=== PATIENT | male | born 1945 | race Caucasian/White ===

== ENCOUNTER 2018-01-02 13:51 | Inpatient (IN) | payer MEDICARE ==
[2018-01-02] MEDS ORDERED: ASPIRIN 81 MG TABLET, CHEWABLE PO ONE (13:54)
--- NOTE | 2018-01-02 13:59 | ER Document Report ---
ED General - General Stated Complaint: CHEST PAIN Time Seen by Provider: 01/02/18 13:58 Notes: Patient is a 72-year-old male with history of diabetes that presents to the emergency department for chief complaint of weakness, polyuria and polydipsia. Patient reports he was having the symptoms over the last day and a half, he states his diabetes was well controlled he was on metformin, but states prior to that he was on insulin, but was taken off of it some time ago. He states he had really dry mouth, and frequent urination he was getting up constantly in the middle the night. He also has felt overall weak, and lightheaded, he had a brief episode of chest pressure earlier today as well. Denies any current chest pain or shortness of breath. Past Medical History: Diabetes mellitus, CAD, hypertension, hyperlipidemia, chronic kidney disease Past Surgical History: Left kidney resection, CAD with stenting x6 Social History: Denies current tobacco, alcohol or drug use Family History: Reviewed and noncontributory for presenting illness Allergies: Reviewed, see documented allergy list. REVIEW OF SYSTEMS: Unless otherwise stated in this report the patient's positive and negative responses for review of systems for constitutional, eyes, ENT, cardiovascular, respiratory, gastrointestinal, neurological, genitourinary, musculoskeletal, and integumentary systems and related systems to the presenting problem are either as stated in the HPI or were not pertinent or were negative for the symptoms and/or complaints related to the presenting medical problem. PHYSICAL EXAMINATION: Vital signs reviewed, nursing noted reviewed. GENERAL: Elderly male, no acute distress HEAD: Atraumatic, normocephalic. EYES: Eyes appear normal, extraocular movements intact, sclera anicteric, conjunctiva are normal. ENT: nares patent, oropharynx clear without exudates. Dry mucous membranes in the mouth NECK: Normal range of motion, supple without lymphadenopathy LUNGS: Breath sounds clear to auscultation bilaterally and equal. No wheezes rales or rhonchi. HEART: Regular rate and rhythm without murmurs ABDOMEN: Soft, obese, nontender, normoactive bowel sounds. No rebound, guarding , or rigidity. No masses appreciated. EXTREMITIES: Nontender, good range of motion, no pitting or edema. NEUROLOGICAL: No focal neurological deficits. Moves all extremities spontaneously Motor and sensory grossly intact on exam. PSYCH: Normal mood, normal affect. SKIN: Warm, Dry, normal turgor, no rashes or lesions noted on exposed skin - Related Data Allergies/Adverse Reactions: No Known Allergies Allergy (Unverified 01/02/18 15:01) Past Medical History - Social History Smoking Status: Never Smoker Family History: Reviewed & Not Pertinent Physical Exam - Vital signs Vitals: Resp 21 H 01/02/18 13:56 Course - Re-evaluation Re-evalutation: Patient seen and examined vital signs reviewed. Laboratory data and imaging were ordered as appropriate for the patient's presenting symptoms and complaint, with consideration of any critical or life threatening conditions that may be associated with their obtained history and exam as noted above. Patient was treated with IV fluids, given 2 L total, and then given 10 units of insulin IV Results were reviewed when available and demonstrated severe hyperglycemia, glucose on serum was 611, initial Accu-Chek was reading high, we repeated this after 2 L of IV fluid, he was still in the 500s, he is not acidotic on VBG, his anion gap was 17, he had pseudohyponatremia, troponin negative, chest x-ray negative The patient was re-evaluated and was improved, overall he was feeling better, he was still markedly hyperglycemic, and I feel that the patient needs inpatient management, to improve his overall blood glucose, and to set him up with insulin regimen Evaluation was most consistent with severe diabetic hyperglycemia, pseudohyponatremia Results were discussed with the patient at this point after careful consideration I feel that that patient should be admitted to the hospital. This was discussed with the patient that it is in the best interest for their care to be admitted for further evaluation and management. Patient agreed with this plan of care. A call was placed to the admitted physician, Dr. Osorio who graciously accepted the patient onto their service. *Note is created using voice recognition software and may contain spelling, syntax or grammatical errors. Laboratory 01/02/18 01/02/18 01/02/18 14:10 14:10 14:10 WBC 7.5 RBC 4.07 L Hgb 10.8 L Hct 32.6 L MCV 80 MCH 26.5 L MCHC 33.1 RDW 15.3 H Plt Count 261 Seg Neutrophils % 70.7 Lymphocytes % 15.9 Monocytes % 9.3 Eosinophils % 2.9 Basophils % 1.2 Absolute Neutrophils 5.3 Absolute Lymphocytes 1.2 Absolute Monocytes 0.7 Absolute Eosinophils 0.2 Absolute Basophils 0.1 VBG pH VBG pCO2 VBG HCO3 VBG Base Excess Sodium 132.2 L Potassium 4.9 Chloride 93 L Carbon Dioxide 22 Anion Gap 17 BUN 35 H Creatinine 1.79 H Est GFR ( Amer) 46 L Est GFR (Non-Af Amer) 38 L Glucose 611 H* POC Glucose Calcium 8.7 Total Bilirubin 0.4 Direct Bilirubin 0.2 Neonat Total Bilirubin Not Reportable Neonat Direct Bilirubin Not Reportable Neonat Indirect Bili Not Reportable AST 16 L ALT 23 Alkaline Phosphatase 160 H Creatine Kinase 61 CK-MB (CK-2) 0.82 Troponin I < 0.012 Total Protein 6.5 Albumin 4.0 01/02/18 01/02/18 14:10 16:14 WBC RBC Hgb Hct MCV MCH MCHC RDW Plt Count Seg Neutrophils % Lymphocytes % Monocytes % Eosinophils % Basophils % Absolute Neutrophils Absolute Lymphocytes Absolute Monocytes Absolute Eosinophils Absolute Basophils VBG pH 7.36 VBG pCO2 46.3 VBG HCO3 25.3 VBG Base Excess -0.5 Sodium Potassium Chloride Carbon Dioxide Anion Gap BUN Creatinine Est GFR ( Amer) Est GFR (Non-Af Amer) Glucose POC Glucose 530 H* Calcium Total Bilirubin Direct Bilirubin Neonat Total Bilirubin Neonat Direct Bilirubin Neonat Indirect Bili AST ALT Alkaline Phosphatase Creatine Kinase CK-MB (CK-2) Troponin I Total Protein Albumin Chest X-Ray 01/02/18 13:54 IMPRESSION: NO ACUTE RADIOGRAPHIC FINDING IN THE CHEST. - Vital Signs Vital signs: Temp Pulse Resp BP Pulse Ox 15 119/60 97 01/02/18 14:01 01/02/18 14:01 01/02/18 14:19 - Laboratory Result Diagrams: 01/02/18 14:10 01/02/18 14:10 Laboratory results interpreted by me: 01/02/18 01/02/18 01/02/18 14:10 14:10 16:14 RBC 4.07 L Hgb 10.8 L Hct 32.6 L MCH 26.5 L RDW 15.3 H Sodium 132.2 L Chloride 93 L BUN 35 H Creatinine 1.79 H Est GFR ( Amer) 46 L Est GFR (Non-Af Amer) 38 L Glucose 611 H* POC Glucose 530 H* AST 16 L Alkaline Phosphatase 160 H - EKG Interpretation by Me Additional EKG results interpreted by me: EKG demonstrates sinus rhythm with a ventricular rate of 87 bpm, left axis deviation, normal intervals, there is a T wave inversion in lead III, nonspecific, no EKG for comparison. Discharge - Discharge Clinical Impression: Hyperglycemia, Dehydration, Renal insufficiency, Hyponatremia Condition: Stable Disposition: ADMITTED INPATIENT Admitting Provider: Hospitalist - Dr. Osorio Unit Admitted: Telemetry
[2018-01-02 14:33] LABS: ABSOLUTE BASOPHILS # (AUTO) 0.1 10^3/uL (0.0-0.2); ABSOLUTE EOSINOPHILS # (AUTO) 0.2 10^3/uL (0.0-0.6); ABSOLUTE LYMPHOCYTES (AUTO) 1.2 10^3/uL (0.5-4.7); ABSOLUTE MONOCYTES (AUTO) 0.7 10^3/uL (0.1-1.4); ABSOLUTE NEUT (AUTO) 5.3 10^3/uL (1.7-8.2); BASOPHILS % (AUTO) 1.2 % (0-2); EOSINOPHILS % (AUTO) 2.9 % (0-6); HEMATOCRIT 32.6 % (37.9-51.0); HEMOGLOBIN 10.8 g/dL (13.5-17.0); LYMPHOCYTES % (AUTO) 15.9 % (13-45); MEAN CORPUSCULAR HEMOGLOBIN 26.5 pg (27.0-33.4); MEAN CORPUSCULAR HGB CONC 33.1 g/dL (32.0-36.0); MEAN CORPUSCULAR VOLUME 80 fl (80-97); MONOCYTES % (AUTO) 9.3 % (3-13); PLATELET COUNT 261 10^3/uL (150-450); RED BLOOD COUNT 4.07 10^6/uL (4.35-5.55); RED CELL DISTRIBUTION WIDTH 15.3 % (11.5-14.0); SEGMENTED NEUTROPHILS % (AUTO) 70.7 % (42-78); TOTAL CELLS COUNTED % (AUTO) 100 %; WHITE BLOOD COUNT 7.5 10^3/uL (4.0-10.5)
[2018-01-02] MEDS ORDERED: NORMAL SALINE 1000 ML 1,000 ML IV ONE (14:34)
[2018-01-02 14:35] LABS: VENOUS BLOOD BASE EXCESS -0.5 mmol/L; VENOUS BLOOD HCO3 25.3 mmol/L (20-32); VENOUS BLOOD PCO2 46.3 mmHg (35-63); VENOUS BLOOD PH 7.36 (7.30-7.42)
[2018-01-02 14:53] LABS: ALANINE AMINOTRANSFERASE 23 U/L (21-72); ALKALINE PHOSPHATASE 160 U/L (38-126); ANION GAP 17 (5-19); ASPARTATE AMINO TRANSFERASE 16 U/L (17-59); BILIRUBIN,DIRECT 0.2 mg/dL (0.0-0.4); BILIRUBIN,TOTAL 0.4 mg/dL (0.2-1.3); BLOOD UREA NITROGEN 35 mg/dL (7-20); CALCIUM 8.7 mg/dL (8.4-10.2); CARBON DIOXIDE 22 mmol/L (22-30); CHLORIDE 93 mmol/L (98-107); CREATINE KINASE 61 U/L (55-170); POTASSIUM 4.9 mmol/L (3.6-5.0); SODIUM 132.2 mmol/L (137-145); TOTAL PROTEIN 6.5 g/dL (6.3-8.2)
[2018-01-02 15:04] LABS: CREATINE KINASE MB 0.82 ng/mL (<4.55)
[2018-01-02 15:06] LABS: GLUCOSE 611 mg/dL (75-110)
[2018-01-02 15:08] LABS: TROPONIN I < 0.012 ng/mL
--- NOTE | 2018-01-02 15:45 | RADIOLOGY REPORT (SQ) ---
EXAM DESCRIPTION: CHEST SINGLE VIEW COMPLETED DATE/TIME: 01/02/2018 3:12 pm REASON FOR STUDY: cp COMPARISON: None. EXAM PARAMETERS: NUMBER OF VIEWS: One view. TECHNIQUE: Single frontal radiographic view of the chest acquired. RADIATION DOSE: NA LIMITATIONS: None. FINDINGS: LUNGS AND PLEURA: No opacities, masses or pneumothorax. No pleural effusion. MEDIASTINUM AND HILAR STRUCTURES: No masses. Contour normal. HEART AND VASCULAR STRUCTURES: Heart normal in size. Normal vasculature. BONES: No acute findings. HARDWARE: None in the chest. OTHER: Hiatal hernia. IMPRESSION: NO ACUTE RADIOGRAPHIC FINDING IN THE CHEST. TECHNICAL DOCUMENTATION: JOB ID: [id number] [email or web address] Rights Reserved Reading location - IP/workstation name: [email or web address]
[2018-01-02] MEDS ORDERED: INSULIN REG, HUMAN 100 UNIT/ML 3 ML VIAL (PYX) IV ONE (16:29)
[2018-01-02] MEDS ORDERED: ONDANSETRON 4 MG TAB.RAPDIS PO PRN (18:33)
[2018-01-02] MEDS ORDERED: DEXTROSE 50%-WATER 25 GM/50 ML DISP.SYRIN IV PRN ×2 (18:42)
[2018-01-02] MEDS ORDERED: GLUCAGON,HUMAN RECOMB 1 MG INJ IM PRN (18:42)
[2018-01-02] MEDS ORDERED: DEXTROSE 40% GEL 15 GM TUBE PO PRN ×2 (18:42)
[2018-01-02] MEDS ORDERED: NORMAL SALINE 1000 ML 1,000 ML IV PRN (18:42)
--- NOTE | 2018-01-02 19:21 | PDOC H&P ---
History of Present Illness Admission Date/PCP: 01/02/18 17:17 GARY ANGELA MD Patient complains of: Diabetes with markedly increased glucose. Significant urinary frequency and increased thirst. Generalized weakness and fatigue History of Present Illness: BONI MANCUSO is a 72 year old male This pleasant 72-year-old gentleman reports 5-6 days of marked increase in urinary frequency and increased thirst. He has been feeling weak in general for 7-10 days. He reports being tired all the time. He denies any fever. He does have a chronic cough from his hiatal hernia with acid reflux. His diabetes was previously well controlled with only 500 mg of metformin daily. He worked his way down from 1000 mg twice daily. Past Medical History Cardiac Medical History: Reports: Coronary Artery Disease, Hyperlipidema, Hypertension Pulmonary Medical History: Reports: None EENT Medical History: Reports: None Neurological Medical History: Reports: Hemorrhagic CVA, Other - Diabetic neuropathy Endocrine Medical History: Reports: Diabetes Mellitus Type 2 Renal/ Medical History: Reports: Chronic Kidney Disease, Other - Prostatitis Malignancy Medical History: Reports: Renal (Kidney) Cancer GI Medical History: Reports: Hiatal Hernia Musculoskeltal Medical History: Reports: None Skin Medical History: Reports: None Psychiatric Medical History: Reports: Depression Past Surgical History Past Surgical History: Reports: Cardiac Catheterization - stents x 6, Coronary Stent - X6, Other - Nephrectomy, TURP, vasectomy Social History Information Source: Patient Lives with: Alone, Other - Smoking Status: Never Smoker Frequency of Alcohol Use: Rare Last Alcohol Use: 10/02/17 - No beer for 3-4 months Drugs: None Hx Prescription Drug Abuse: No 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 Family History Family History: CAD, DM Parental Family History Reviewed: Yes Children Family History Reviewed: Yes - 2 children with no chronic illnesses Sibling(s) Family History Reviewed.: Yes - Brother is from trauma/GSW Medication/Allergy Home Medications: Amlodipine Besylate [Norvasc 10 mg Tablet] 10 mg PO DAILY 01/02/18 Aspirin [Aspirin EC] 81 mg PO DAILY 01/02/18 Atorvastatin Calcium [Lipitor 20 mg Tablet] 20 mg PO QHS 01/02/18 Bupropion HCl [Bupropion HCl Sr] 150 mg PO DAILY 01/02/18 Clopidogrel Bisulfate [Clopidogrel] 75 mg PO DAILY 01/02/18 Esomeprazole Magnesium [Nexium] 40 mg PO DAILY 01/02/18 Gabapentin 300 mg PO Q8 01/02/18 Hydrochlorothiazide [Hydrodiuril 25 mg Tablet] 25 mg PO DAILY 01/02/18 Isosorbide Mononitrate [Isosorbide Mononitrate ER] 30 mg PO DAILY 01/02/18 Lisinopril [Zestril] 20 mg PO Q12 01/02/18 Metformin HCl [Glucophage 500 mg Tablet] 500 mg PO DAILY 01/02/18 Ranitidine HCl [Zantac] 150 mg PO Q12 01/02/18 Allergies/Adverse Reactions: No Known Allergies Allergy (Unverified 01/02/18 15:01) Review of Systems Constitutional: PRESENT: fatigue, weakness Eyes: PRESENT: visual disturbances - Blurry vision over the last week Ears: ABSENT: hearing changes Nose, Mouth, and Throat: PRESENT: other - Dry mouth Cardiovascular: ABSENT: chest pain, dyspnea on exertion, palpitations Respiratory: PRESENT: cough - Related to hiatal hernia with reflux Gastrointestinal: PRESENT: diarrhea - For the last several days, other - Acid reflux Genitourinary: PRESENT: other - Very frequent urination. ABSENT: dysuria, hematuria Musculoskeletal: PRESENT: as per HPI Integumentary: ABSENT: diaphoresis, pruritus, rash Neurological: PRESENT: other - Pins and needles both feet Psychiatric: PRESENT: depression - Stable on Zoloft Endocrine: PRESENT: polydipsia, polyuria Hematologic/Lymphatic: ABSENT: easy bleeding, easy bruising Allergic/Immunologic: ABSENT: seasonal rhinorrhea Physical Exam Vital Signs: Temp Pulse Resp BP Pulse Ox 16 123/71 98 01/02/18 17:01 01/02/18 17:01 01/02/18 17:01 General appearance: PRESENT: no acute distress, cooperative, morbidly obese, well-developed, well-nourished Head exam: PRESENT: atraumatic, normocephalic Eye exam: PRESENT: conjunctiva pink, EOMI. ABSENT: scleral icterus Ear exam: PRESENT: normal external ear exam Mouth exam: PRESENT: dry mucosa Throat exam: ABSENT: tonsillar erythema, tonsillar exudate Neck exam: PRESENT: full ROM. ABSENT: carotid bruit, JVD, lymphadenopathy Respiratory exam: PRESENT: clear to auscultation kobe, symmetrical. ABSENT: rales, rhonchi, wheezes Cardiovascular exam: PRESENT: RRR, +S1, +S2, systolic murmur - 1/6 systolic murmur. Pulses: PRESENT: normal radial pulses, normal dorsalis pedis pul Vascular exam: PRESENT: normal capillary refill GI/Abdominal exam: PRESENT: normal bowel sounds, soft. ABSENT: distended, firm , tenderness Rectal exam: PRESENT: deferred Extremities exam: ABSENT: calf tenderness, pedal edema Musculoskeletal exam: PRESENT: normal inspection Neurological exam: PRESENT: alert, awake, oriented to person, oriented to place , oriented to situation Psychiatric exam: PRESENT: appropriate affect, normal mood Skin exam: PRESENT: dry, intact, warm. ABSENT: cyanosis, rash Results Impressions: Chest X-Ray 01/02/18 13:54 IMPRESSION: NO ACUTE RADIOGRAPHIC FINDING IN THE CHEST. Assessment & Plan - Diagnosis (1) Diabetes mellitus with hyperglycemia Qualifiers: Diabetes mellitus type: type 2 Diabetes mellitus terminal operations manager insulin use: without terminal operations manager use Qualified Code(s): E11.65 - Type 2 diabetes mellitus with hyperglycemia Is this a current diagnosis for this admission?: Yes Plan: The patient has a history of diabetes mellitus. He previously was on insulin and metformin. He states that with diet and exercise he was able to work his way down to no insulin and 500 mg of metformin daily from 1 g of metformin twice daily. He cannot recall an incident that may have triggered his high sugar. Based on his symptoms he has likely had underlying hyperglycemia for at least 5-6 days and likely longer. I will check a hemoglobin A1c. I am holding his metformin and instituting Lantus 8 units daily with a Humalog sliding scale. I will likely resume his metformin based on his renal function. (2) Chronic kidney disease (CKD) stage G3b/A3, moderately decreased glomerular filtration rate (GFR) between 30-44 mL/min/1.73 square meter and albuminuria creatinine ratio greater than 300 mg/g Is this a current diagnosis for this admission?: Yes Plan: The patient was somewhat dehydrated with hypotension responding to IV fluids. This is likely from the marked polyuria. He is status post a nephrectomy for renal cell carcinoma. His current GFR is only 38. We will continue to monitor his renal function. (3) Dehydration Is this a current diagnosis for this admission?: Yes Plan: Likely result of his polyuria. We will continue IV fluids and recheck his chemistries in the morning. (4) Coronary artery disease Is this a current diagnosis for this admission?: Yes Plan: The patient has a history of 6 cardiac stents. He also has a history of hemorrhagic stroke. We will continue atorvastatin, aspirin, Plavix and his FABIAN inhibitor. He is on a calcium channel harris but he has not been on beta blockade. - Time Time Spent: 50 to 70 Minutes Medications reviewed and adjusted accordingly: Yes Anticipated discharge: Home - Inpatient Certification Based on my medical assessment, after consideration of the patient's comorbidities, presenting symptoms, or acuity I expect that the services needed warrant INPATIENT care.: Yes I certify that my determination is in accordance with my understanding of Medicare's requirements for reasonable and necessary INPATIENT services [42 CFR 412.3e].: Yes Medical Necessity: Need Close Monitoring Due to Risk of Patient Decompensation, Need For IV Fluids, Risk of Complication if Not Cared For in Hospital
--- NOTE | 2018-01-02 20:45 | EKG REPORT ---
SEVERITY:- ABNORMAL ECG - SINUS RHYTHM PROBABLE INFERIOR INFARCT, AGE INDETERMINATE : Confirmed by: Dionna Paulino MD 02-Jan-2018 20:44:54
[2018-01-02] MEDS ORDERED: (PENDING PHARMACY ID) (Ranitidine Hcl [Zantac 150 Mg Tablet] 150 MG) PO SCH (22:00)
[2018-01-02] MEDS ORDERED: (PENDING PHARMACY ID) (Lisinopril [Zestril] 20 MG) PO SCH (22:00)
[2018-01-02] MEDS ORDERED: LISINOPRIL 10 MG TABLET PO SCH (22:00)
[2018-01-02] MEDS ORDERED: INSULIN GLARGINE,HUM.REC.ANLOG 300 UNIT/3 ML INSULN.PEN SUBCUT SCH (22:00)
[2018-01-02] MEDS ORDERED: SERTRALINE HCL 50 MG TABLET PO SCH (22:00)
[2018-01-02] MEDS: INSULIN LISPRO 100 UNIT/ML 3 ML VIAL SUBCUT PRN (22:50)
[2018-01-02] MEDS: BUPROPION HCL 75 MG TABLET PO SCH (22:50)
[2018-01-02] MEDS: FAMOTIDINE 20 MG TABLET PO SCH (22:50)
[2018-01-02] MEDS: ATORVASTATIN CALCIUM 80 MG TABLET PO SCH (22:50)
[2018-01-02] MEDS: GABAPENTIN 300 MG CAPSULE PO SCH (22:50)
[2018-01-03 04:56] LABS: ABSOLUTE BASOPHILS # (AUTO) 0.1 10^3/uL (0.0-0.2); ABSOLUTE EOSINOPHILS # (AUTO) 0.3 10^3/uL (0.0-0.6); ABSOLUTE LYMPHOCYTES (AUTO) 1.5 10^3/uL (0.5-4.7); ABSOLUTE MONOCYTES (AUTO) 0.6 10^3/uL (0.1-1.4); ABSOLUTE NEUT (AUTO) 4.6 10^3/uL (1.7-8.2); BASOPHILS % (AUTO) 1.4 % (0-2); EOSINOPHILS % (AUTO) 3.9 % (0-6); HEMOGLOBIN 10.2 g/dL (13.5-17.0); LYMPHOCYTES % (AUTO) 21.5 % (13-45); MEAN CORPUSCULAR HEMOGLOBIN 27.8 pg (27.0-33.4); MEAN CORPUSCULAR HGB CONC 35.1 g/dL (32.0-36.0); MEAN CORPUSCULAR VOLUME 79 fl (80-97); MONOCYTES % (AUTO) 8.9 % (3-13); PLATELET COUNT 211 10^3/uL (150-450); RED BLOOD COUNT 3.66 10^6/uL (4.35-5.55); RED CELL DISTRIBUTION WIDTH 15.6 % (11.5-14.0); SEGMENTED NEUTROPHILS % (AUTO) 64.3 % (42-78); TOTAL CELLS COUNTED % (AUTO) 100 %; WHITE BLOOD COUNT 7.1 10^3/uL (4.0-10.5)
[2018-01-03] MEDS ORDERED: LANSOPRAZOLE 30 MG TAB.RAP.DR PO SCH (06:00)
[2018-01-03] MEDS: GABAPENTIN 300 MG CAPSULE PO SCH ×3 (06:20→21:56)
[2018-01-03] MEDS: LANSOPRAZOLE 30 MG TAB.RAP.DR PO SCH (06:20)
[2018-01-03] MEDS: INSULIN LISPRO 100 UNIT/ML 3 ML VIAL SUBCUT PRN ×3 (06:37→21:56)
[2018-01-03] MEDS: ISOSORBIDE MONONITRATE 30 MG TAB.ER.24H PO SCH (09:19)
[2018-01-03] MEDS: LISINOPRIL 10 MG TABLET PO SCH (09:19)
[2018-01-03] MEDS: ASPIRIN 81 MG TABLET, CHEWABLE PO SCH (09:20)
[2018-01-03] MEDS: HYDROCHLOROTHIAZIDE 25 MG TABLET PO SCH (09:20)
[2018-01-03] MEDS: FAMOTIDINE 20 MG TABLET PO SCH ×2 (09:20→21:56)
[2018-01-03] MEDS: CLOPIDOGREL BISULFATE 75 MG TABLET PO SCH (09:20)
[2018-01-03] MEDS: AMLODIPINE BESYLATE 5 MG TABLET PO SCH (09:20)
[2018-01-03] MEDS: ENOXAPARIN SODIUM INJ 40 MG/0.4 ML DISP.SYRIN SUBCUT SCH (09:21)
[2018-01-03] MEDS: BUPROPION HCL 75 MG TABLET PO SCH ×2 (11:06→22:03)
[2018-01-03] MEDS ORDERED: INSULIN LISPRO 100 UNIT/ML 3 ML VIAL SUBCUT ONE ×2 (16:30→18:30)
--- NOTE | 2018-01-03 17:30 | PDOC PROGRESS REPORT ---
Subjective Progress Note for:: 01/03/18 Subjective:: The patient reports feeling better however his Accu-Cheks remain elevated. Reason For Visit: DIABETES MELLITIUS TYPE 2 WITH HYPERGLYCEMIA Physical Exam Vital Signs: Temp Pulse Resp BP Pulse Ox 98.4 F 73 18 130/57 H 91 L 01/03/18 07:24 01/03/18 14:00 01/03/18 07:24 01/03/18 07:24 01/03/18 07:24 Intake & Output 01/02/18 01/03/18 01/04/18 06:59 06:59 06:59 Intake Total 700 Balance 700 Weight 108.8 kg General appearance: PRESENT: no acute distress, cooperative, obese Head exam: PRESENT: atraumatic, normocephalic Eye exam: PRESENT: conjunctiva pink, EOMI. ABSENT: scleral icterus Ear exam: PRESENT: normal external ear exam Mouth exam: PRESENT: moist Neck exam: ABSENT: carotid bruit, JVD, lymphadenopathy Respiratory exam: PRESENT: rales - Faint rales at bilateral bases., symmetrical , unlabored. ABSENT: rhonchi, wheezes Cardiovascular exam: PRESENT: RRR, +S1, +S2, systolic murmur Pulses: PRESENT: normal radial pulses, normal dorsalis pedis pul GI/Abdominal exam: PRESENT: normal bowel sounds, soft. ABSENT: distended, guarding, tenderness Extremities exam: ABSENT: calf tenderness, pedal edema Musculoskeletal exam: PRESENT: ambulatory Neurological exam: PRESENT: alert, awake, oriented to person, oriented to place , oriented to situation Psychiatric exam: PRESENT: appropriate affect, normal mood Focused psych exam: ABSENT: delusional, pressured speech, restlessness Skin exam: PRESENT: dry, intact, warm. ABSENT: cyanosis, rash Results Laboratory Results: 01/03/18 04:14 01/03/18 04:14 WBC 7.1 RBC 3.66 L Hgb 10.2 L Hct 29.0 L MCV 79 L MCH 27.8 MCHC 35.1 RDW 15.6 H Plt Count 211 Seg Neutrophils % 64.3 Lymphocytes % 21.5 Monocytes % 8.9 Eosinophils % 3.9 Basophils % 1.4 Absolute Neutrophils 4.6 Absolute Lymphocytes 1.5 Absolute Monocytes 0.6 Absolute Eosinophils 0.3 Absolute Basophils 0.1 01/02/18 20:45 Troponin I < 0.012 Impressions: Chest X-Ray 01/02/18 13:54 IMPRESSION: NO ACUTE RADIOGRAPHIC FINDING IN THE CHEST. Assessment & Plan - Diagnosis (1) Diabetes mellitus with hyperglycemia Qualifiers: Diabetes mellitus type: type 2 Diabetes mellitus fence setter insulin use: without fence setter use Qualified Code(s): E11.65 - Type 2 diabetes mellitus with hyperglycemia Is this a current diagnosis for this admission?: Yes Plan: The patient has a history of diabetes mellitus. He previously was on insulin and metformin. He states that with diet and exercise he was able to work his way down to no insulin and 500 mg of metformin daily from 1 g of metformin twice daily. He cannot recall an incident that may have triggered his high sugar. Based on his symptoms he has likely had underlying hyperglycemia for at least 5-6 days and likely longer. I will check a hemoglobin A1c. I am holding his metformin and instituting Lantus 8 units daily with a Humalog sliding scale. I will likely resume his metformin based on his renal function. January 03, 2018-despite resuming Lantus the patient still has high Accu-Cheks. I did give him extra Humalog insulin this evening. I have increased his Lantus to twice daily dosing. He has hemoglobin A1c was greater than 14 and so clearly there has been some compliance issues. We will follow his Accu-Cheks and see how he does on the higher dose of Lantus. (2) Chronic kidney disease (CKD) stage G3b/A3, moderately decreased glomerular filtration rate (GFR) between 30-44 mL/min/1.73 square meter and albuminuria creatinine ratio greater than 300 mg/g Is this a current diagnosis for this admission?: Yes Plan: The patient was somewhat dehydrated with hypotension responding to IV fluids. This is likely from the marked polyuria. He is status post a nephrectomy for renal cell carcinoma. His current GFR is only 38. We will continue to monitor his renal function. January 03, 2018-again he seems to be at baseline. I will recheck chemistries tomorrow. Continue current medication regimen. (3) Dehydration Is this a current diagnosis for this admission?: Yes Plan: Likely result of his polyuria. We will continue IV fluids and recheck his chemistries in the morning. January 03, 2018-I discontinued the patient's continuous saline infusion. He is having no difficulty with his oral intake so we will encourage increased p.o. liquids. His dehydration seems to have resolved. His polyuria will improve with better glucose control. (4) Coronary artery disease Is this a current diagnosis for this admission?: Yes Plan: The patient has a history of 6 cardiac stents. He also has a history of hemorrhagic stroke. We will continue atorvastatin, aspirin, Plavix and his FABIAN inhibitor. He is on a calcium channel harris but he has not been on beta blockade. The second 2018-the patient has a significant history of coronary artery disease with 6 stents. His regimen does not include a beta-harris. I will see if there is any contraindication and if not likely start him on low-dose metoprolol. - Time Time Spent with patient: 25-34 minutes Medications reviewed and adjusted accordingly: Yes Anticipated discharge: Home
[2018-01-03] MEDS: INSULIN GLARGINE,HUM.REC.ANLOG 300 UNIT/3 ML INSULN.PEN SUBCUT SCH (18:31)
[2018-01-03] MEDS: ATORVASTATIN CALCIUM 80 MG TABLET PO SCH (21:56)
[2018-01-03] MEDS ORDERED: INSULIN GLARGINE,HUM.REC.ANLOG 300 UNIT/3 ML INSULN.PEN SUBCUT SCH (22:00)
[2018-01-04 05:46] LABS: ANION GAP 11 (5-19); BLOOD UREA NITROGEN 27 mg/dL (7-20); CALCIUM 8.6 mg/dL (8.4-10.2); CARBON DIOXIDE 26 mmol/L (22-30); CHLORIDE 100 mmol/L (98-107); GLUCOSE 250 mg/dL (75-110); POTASSIUM 4.2 mmol/L (3.6-5.0); SODIUM 136.5 mmol/L (137-145)
[2018-01-04] MEDS: GABAPENTIN 300 MG CAPSULE PO SCH ×3 (06:08→21:30)
[2018-01-04] MEDS: LANSOPRAZOLE 30 MG TAB.RAP.DR PO SCH (06:09)
[2018-01-04] MEDS: INSULIN LISPRO 100 UNIT/ML 3 ML VIAL SUBCUT PRN ×3 (07:44→15:50)
[2018-01-04] MEDS: ISOSORBIDE MONONITRATE 30 MG TAB.ER.24H PO SCH (09:41)
[2018-01-04] MEDS: ASPIRIN 81 MG TABLET, CHEWABLE PO SCH (09:41)
[2018-01-04] MEDS: HYDROCHLOROTHIAZIDE 25 MG TABLET PO SCH (09:41)
[2018-01-04] MEDS: FAMOTIDINE 20 MG TABLET PO SCH ×2 (09:42→21:30)
[2018-01-04] MEDS: INSULIN GLARGINE,HUM.REC.ANLOG 300 UNIT/3 ML INSULN.PEN SUBCUT SCH (09:42)
[2018-01-04] MEDS: ENOXAPARIN SODIUM INJ 40 MG/0.4 ML DISP.SYRIN SUBCUT SCH (09:42)
[2018-01-04] MEDS: BUPROPION HCL 75 MG TABLET PO SCH ×2 (09:42→21:30)
[2018-01-04] MEDS: AMLODIPINE BESYLATE 5 MG TABLET PO SCH (09:42)
[2018-01-04] MEDS: LISINOPRIL 10 MG TABLET PO SCH (09:42)
[2018-01-04] MEDS: CLOPIDOGREL BISULFATE 75 MG TABLET PO SCH (09:42)
[2018-01-04] MEDS: ACETAMINOPHEN 325 MG TABLET PO PRN ×2 (12:01→17:47)
--- NOTE | 2018-01-04 12:58 | PDOC PROGRESS REPORT ---
Subjective Progress Note for:: 01/04/18 Subjective:: The patient was still having hyperglycemia with glucoses over 300. He had a headache this morning and stated that this improved after his insulin dosing. He was also walking around and was a little dizzy but this resolved spontaneously. Reason For Visit: DIABETES MELLITIUS TYPE 2 WITH HYPERGLYCEMIA Physical Exam Vital Signs: Temp Pulse Resp BP Pulse Ox 97.8 F 65 17 128/67 H 98 01/04/18 04:00 01/04/18 07:00 01/04/18 04:00 01/04/18 04:00 01/04/18 04:00 Intake & Output 01/03/18 01/04/18 01/05/18 06:59 06:59 05:59 Intake Total 700 1059 Balance 700 1059 Weight 108.8 kg 106.9 kg General appearance: PRESENT: no acute distress, cooperative, morbidly obese, well-nourished Head exam: PRESENT: atraumatic, normocephalic Eye exam: PRESENT: conjunctiva pink, EOMI. ABSENT: scleral icterus Ear exam: PRESENT: normal external ear exam Mouth exam: PRESENT: moist Neck exam: ABSENT: carotid bruit, JVD, lymphadenopathy Respiratory exam: PRESENT: clear to auscultation kobe, symmetrical, unlabored. ABSENT: rales, rhonchi, wheezes Cardiovascular exam: PRESENT: RRR, +S1, +S2 GI/Abdominal exam: PRESENT: distended, normal bowel sounds, soft. ABSENT: guarding, tenderness Extremities exam: PRESENT: pedal edema. ABSENT: calf tenderness, joint swelling Musculoskeletal exam: PRESENT: ambulatory Neurological exam: PRESENT: alert, awake, oriented to person, oriented to place , oriented to situation Psychiatric exam: PRESENT: appropriate affect, normal mood Skin exam: PRESENT: dry, normal color, warm Results Laboratory Results: 01/03/18 04:14 01/04/18 04:34 01/04/18 04:34 Sodium 136.5 L Potassium 4.2 Chloride 100 Carbon Dioxide 26 Anion Gap 11 BUN 27 H Creatinine 1.72 H Est GFR ( Amer) 48 L Est GFR (Non-Af Amer) 40 L Glucose 250 H Calcium 8.6 01/02/18 20:45 Troponin I < 0.012 Impressions: Chest X-Ray 01/02/18 13:54 IMPRESSION: NO ACUTE RADIOGRAPHIC FINDING IN THE CHEST. 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 He previously was on insulin and metformin. He states that with diet and exercise he was able to work his way down to no insulin and 500 mg of metformin daily from 1 g of metformin twice daily. He cannot recall an incident that may have triggered his high sugar. Based on his symptoms he has likely had underlying hyperglycemia for at least 5-6 days and likely longer. I will check a hemoglobin A1c. I am holding his metformin and instituting Lantus 8 units daily with a Humalog sliding scale. I will likely resume his metformin based on his renal function. January 03, 2018-despite resuming Lantus the patient still has high Accu-Cheks. I did give him extra Humalog insulin this evening. I have increased his Lantus to twice daily dosing. He has hemoglobin A1c was greater than 14 and so clearly there has been some compliance issues. We will follow his Accu-Cheks and see how he does on the higher dose of Lantus. 01/04/2018-despite almost doubling his Lantus he still has hyperglycemia. I have added a fixed dose of Humalog in addition to his sliding scale before meals. With his chronic kidney failure I would like to avoid returning to metformin. He will likely do much better with insulin. He states that he has nothing from when he used to use his insulin. He will likely need a glucometer as well. I will ask nursing home social worker to start working with the patient. (2) Chronic kidney disease (CKD) stage G3b/A3, moderately decreased glomerular filtration rate (GFR) between 30-44 mL/min/1.73 square meter and albuminuria creatinine ratio greater than 300 mg/g Is this a current diagnosis for this admission?: Yes Plan: The patient was somewhat dehydrated with hypotension responding to IV fluids. This is likely from the marked polyuria. He is status post a nephrectomy for renal cell carcinoma. His current GFR is only 38. We will continue to monitor his renal function. January 03, 2018-again he seems to be at baseline. I will recheck chemistries tomorrow. Continue current medication regimen. 01/04/2018-on his current medication regimen and with his current intake the chronic renal failure seems to remain at baseline. His estimated GFR today is 40. (3) Dehydration Is this a current diagnosis for this admission?: Yes Plan: Likely result of his polyuria. We will continue IV fluids and recheck his chemistries in the morning. January 03, 2018-I discontinued the patient's continuous saline infusion. He is having no difficulty with his oral intake so we will encourage increased p.o. liquids. His dehydration seems to have resolved. His polyuria will improve with better glucose control. 01/04/2018-he did have a positive fluid balance of 700 mL yesterday. We are trying to continue to encourage adequate water intake. He has not exhibited any hypotension. I believe he is euvolemic at this time. (4) Coronary artery disease Is this a current diagnosis for this admission?: Yes Plan: The patient has a history of 6 cardiac stents. He also has a history of hemorrhagic stroke. We will continue atorvastatin, aspirin, Plavix and his FABIAN inhibitor. He is on a calcium channel harris but he has not been on beta blockade. 01/03/2018-the patient has a significant history of coronary artery disease with 6 stents. His regimen does not include a beta-harris. I will see if there is any contraindication and if not likely start him on low-dose metoprolol. 01/04/2018-despite his significant coronary artery disease (6 stents) the patient has remained asymptomatic. He is ambulating and his blood pressure remained stable. We will continue his current regimen at this time. - Time Time Spent with patient: 15-24 minutes Medications reviewed and adjusted accordingly: Yes Anticipated discharge: Home Within: within 48 hours
[2018-01-04] MEDS ORDERED: INSULIN LISPRO 100 UNIT/ML 3 ML VIAL SUBCUT SCH (16:00)
[2018-01-04] MEDS ORDERED: INSULIN LISPRO 100 UNIT/ML 3 ML VIAL SUBCUT ONE (17:45)
[2018-01-04] MEDS ORDERED: HUM INSULIN NPH/REG INSULIN HM 100 UNIT/1 ML 3 ML SUBCUT SCH (18:00)
--- NOTE | 2018-01-04 19:15 | Progress Note ---
Provider Note Provider Note: This is an addendum to today's progress note. Despite ever more aggressive subcutaneous insulin dosing the patient's glucose has not exhibited good control. This could be due to absorption issues or other. We will start an insulin infusion and titrate per protocol. Hopefully this will get him settled and then we can develop a regimen.
[2018-01-04] MEDS ORDERED: INSULIN REG, HUMAN 100 UNIT/ML 3 ML VIAL (PYX) ONE (19:59)
[2018-01-04 20:03] LABS: ANION GAP 15 (5-19); BLOOD UREA NITROGEN 35 mg/dL (7-20); CALCIUM 8.9 mg/dL (8.4-10.2); CARBON DIOXIDE 23 mmol/L (22-30); CHLORIDE 97 mmol/L (98-107); GLUCOSE 249 mg/dL (75-110); POTASSIUM 4.4 mmol/L (3.6-5.0); SODIUM 134.9 mmol/L (137-145)
[2018-01-04] MEDS: NORMAL SALINE 100 ML with INSULIN REGULAR, HUMAN 100 UNIT IV PRN ×2 (20:16)
[2018-01-04] MEDS: ATORVASTATIN CALCIUM 80 MG TABLET PO SCH (21:30)
[2018-01-05] MEDS: LANSOPRAZOLE 30 MG TAB.RAP.DR PO SCH (05:09)
[2018-01-05] MEDS: GABAPENTIN 300 MG CAPSULE PO SCH ×3 (05:09→21:29)
[2018-01-05 07:05] LABS: ANION GAP 13 (5-19); BLOOD UREA NITROGEN 36 mg/dL (7-20); CALCIUM 8.7 mg/dL (8.4-10.2); CARBON DIOXIDE 25 mmol/L (22-30); CHLORIDE 101 mmol/L (98-107); GLUCOSE 93 mg/dL (75-110); POTASSIUM 4.2 mmol/L (3.6-5.0); SODIUM 138.7 mmol/L (137-145)
[2018-01-05] MEDS: CLOPIDOGREL BISULFATE 75 MG TABLET PO SCH (09:50)
[2018-01-05] MEDS: AMLODIPINE BESYLATE 5 MG TABLET PO SCH (09:50)
[2018-01-05] MEDS: FAMOTIDINE 20 MG TABLET PO SCH ×2 (09:50→21:29)
[2018-01-05] MEDS: HYDROCHLOROTHIAZIDE 25 MG TABLET PO SCH (09:50)
[2018-01-05] MEDS: ASPIRIN 81 MG TABLET, CHEWABLE PO SCH (09:50)
[2018-01-05] MEDS: ISOSORBIDE MONONITRATE 30 MG TAB.ER.24H PO SCH (09:50)
[2018-01-05] MEDS: LISINOPRIL 10 MG TABLET PO SCH (09:51)
[2018-01-05] MEDS: BUPROPION HCL 75 MG TABLET PO SCH ×2 (09:51→21:29)
[2018-01-05] MEDS: ENOXAPARIN SODIUM INJ 40 MG/0.4 ML DISP.SYRIN SUBCUT SCH (09:55)
[2018-01-05 10:03] LABS: APPEARANCE,URINE CLEAR; BILIRUBIN,URINE NEGATIVE (NEGATIVE); COLOR,URINE YELLOW; GLUCOSE, URINE 50 mg/dL (NEGATIVE); KETONES,URINE NEGATIVE (NEGATIVE); LEUKOCYTE ESTERASE,URINE NEGATIVE (NEGATIVE); NITRITE,URINE NEGATIVE (NEGATIVE); PROTEIN,URINE NEGATIVE (NEGATIVE); URINE SPECIFIC GRAVITY 1.019; UROBILINOGEN,URINE NEGATIVE mg/dL (<2.0)
--- NOTE | 2018-01-05 12:44 | PDOC PROGRESS REPORT ---
Subjective Progress Note for:: 01/05/18 Subjective:: The patient was actually feeling much better earlier today. On the insulin infusion his glucose was 93 at his dobie worker blood draw. His sugar has been climbing. He felt quite good at 93 but is feeling symptomatic with headache and weakness as his sugar increases. Reason For Visit: DIABETES MELLITIUS TYPE 2 WITH HYPERGLYCEMIA Physical Exam Vital Signs: Temp Pulse Resp BP Pulse Ox 97.9 F 74 17 139/63 H 97 01/05/18 03:00 01/05/18 07:00 01/05/18 03:00 01/05/18 03:00 01/05/18 03:00 Intake & Output 01/04/18 01/05/18 01/06/18 07:59 06:59 06:59 Intake Total Balance Weight General appearance: PRESENT: cooperative, mild distress, morbidly obese Head exam: PRESENT: atraumatic, normocephalic Eye exam: PRESENT: conjunctiva pink, EOMI. ABSENT: scleral icterus Ear exam: PRESENT: normal external ear exam Mouth exam: PRESENT: moist Neck exam: PRESENT: full ROM. ABSENT: carotid bruit, JVD, lymphadenopathy Respiratory exam: PRESENT: clear to auscultation kobe, symmetrical, unlabored. ABSENT: rales, rhonchi, wheezes Cardiovascular exam: PRESENT: RRR, +S1, +S2 GI/Abdominal exam: PRESENT: distended, normal bowel sounds, soft. ABSENT: guarding, tenderness Neurological exam: PRESENT: alert, awake, oriented to person, oriented to place , oriented to time, oriented to situation Psychiatric exam: PRESENT: appropriate affect - His affect reflects his disappointment with recurrence of his symptoms especially since he was feeling so good this morning Results Laboratory Results: 01/03/18 04:14 01/05/18 04:52 01/04/18 01/05/18 01/05/18 19:32 04:52 09:27 Sodium 134.9 L 138.7 Potassium 4.4 4.2 Chloride 97 L 101 Carbon Dioxide 23 25 Anion Gap 15 13 BUN 35 H 36 H Creatinine 2.17 H 1.89 H Est GFR ( Amer) 37 L 43 L Est GFR (Non-Af Amer) 30 L 35 L Glucose 249 H 93 Calcium 8.9 8.7 Urine Color YELLOW Urine Appearance CLEAR Urine pH 5.0 Ur Specific [place] 1.019 Urine Protein NEGATIVE Urine Glucose (UA) 50 H Urine Ketones NEGATIVE Urine Blood NEGATIVE Urine Nitrite NEGATIVE Ur Leukocyte Esterase NEGATIVE Urine WBC (Auto) 0 Urine RBC (Auto) 0 01/02/18 20:45 Troponin I < 0.012 Impressions: Chest X-Ray 01/02/18 13:54 IMPRESSION: NO ACUTE RADIOGRAPHIC FINDING IN THE CHEST. Assessment & Plan - Diagnosis (1) Diabetes mellitus with hyperglycemia Qualifiers: Diabetes mellitus type: type 2 Diabetes mellitus custodial insulin use: without custodial use Qualified Code(s): E11.65 - Type 2 diabetes mellitus with hyperglycemia Is this a current diagnosis for this admission?: Yes Plan: The patient has a history of diabetes mellitus. He previously was on insulin and metformin. He states that with diet and exercise he was able to work his way down to no insulin and 500 mg of metformin daily from 1 g of metformin twice daily. He cannot recall an incident that may have triggered his high sugar. Based on his symptoms he has likely had underlying hyperglycemia for at least 5-6 days and likely longer. I will check a hemoglobin A1c. I am holding his metformin and instituting Lantus 8 units daily with a Humalog sliding scale. I will likely resume his metformin based on his renal function. January 03, 2018-despite resuming Lantus the patient still has high Accu-Cheks. I did give him extra Humalog insulin this evening. I have increased his Lantus to twice daily dosing. He has hemoglobin A1c was greater than 14 and so clearly there has been some compliance issues. We will follow his Accu-Cheks and see how he does on the higher dose of Lantus. 01/04/2018-despite almost doubling his Lantus he still has hyperglycemia. I have added a fixed dose of Humalog in addition to his sliding scale before meals. With his chronic kidney failure I would like to avoid returning to metformin. He will likely do much better with insulin. He states that he has nothing from when he used to use his insulin. He will likely need a glucometer as well. I will ask social work coordinator to start working with the patient. 01/05/2018-is very disappointing that intravenous glucose is very effective and his subcutaneous dosing has been ineffective. I told him that I will have to come up with a new formulation that will likely include oral agents as well. Before I start any medications I will need to check for adjusted dose for renal function. (2) Chronic kidney disease (CKD) stage G3b/A3, moderately decreased glomerular filtration rate (GFR) between 30-44 mL/min/1.73 square meter and albuminuria creatinine ratio greater than 300 mg/g Is this a current diagnosis for this admission?: Yes Plan: The patient was somewhat dehydrated with hypotension responding to IV fluids. This is likely from the marked polyuria. He is status post a nephrectomy for renal cell carcinoma. His current GFR is only 38. We will continue to monitor his renal function. January 03, 2018-again he seems to be at baseline. I will recheck chemistries tomorrow. Continue current medication regimen. 01/04/2018-on his current medication regimen and with his current intake the chronic renal failure seems to remain at baseline. His estimated GFR today is 40. 01/05/2018-the patient's GFR is remaining steady. His BUN is still elevated. He is on accessory IV fluids in addition to the infusion. We do need to encourage more water intake. (3) Dehydration Is this a current diagnosis for this admission?: Yes Plan: Likely result of his polyuria. We will continue IV fluids and recheck his chemistries in the morning. January 03, 2018-I discontinued the patient's continuous saline infusion. He is having no difficulty with his oral intake so we will encourage increased p.o. liquids. His dehydration seems to have resolved. His polyuria will improve with better glucose control. 01/04/2018-he did have a positive fluid balance of 700 mL yesterday. We are trying to continue to encourage adequate water intake. He has not exhibited any hypotension. I believe he is euvolemic at this time. 01/05/2018-I will continue the normal saline at 75 mL/h and encourage oral fluids. (4) Coronary artery disease Is this a current diagnosis for this admission?: Yes Plan: The patient has a history of 6 cardiac stents. He also has a history of hemorrhagic stroke. We will continue atorvastatin, aspirin, Plavix and his FABIAN inhibitor. He is on a calcium channel harris but he has not been on beta blockade. 01/03/2018-the patient has a significant history of coronary artery disease with 6 stents. His regimen does not include a beta-harris. I will see if there is any contraindication and if not likely start him on low-dose metoprolol. 01/04/2018-despite his significant coronary artery disease (6 stents) the patient has remained asymptomatic. He is ambulating and his blood pressure remained stable. We will continue his current regimen at this time. 01/05/2018-continue current regimen. - Time Time Spent with patient: 25-34 minutes Medications reviewed and adjusted accordingly: Yes Anticipated discharge: Home - Plan Summary Plan Summary: As noted above the main issue is to find an effective regimen for the patient. There is a significant difference between the intravenous administration of insulin versus subcutaneous. I explained to the patient that he may need a lot more insulin by subcutaneous route. I told him I would check and likely resume a regimen that includes oral medication. I would like to stay away from metformin due to his chronic kidney disease.
[2018-01-05] MEDS: ACETAMINOPHEN 325 MG TABLET PO PRN ×2 (15:03→21:28)
[2018-01-05] MEDS: NORMAL SALINE 100 ML with INSULIN REGULAR, HUMAN 100 UNIT IV PRN ×2 (15:03)
[2018-01-05] MEDS: ATORVASTATIN CALCIUM 80 MG TABLET PO SCH (21:29)
[2018-01-06] MEDS ORDERED: INSULIN GLARGINE,HUM.REC.ANLOG 1,000 UNIT/10 ML UNIT SUBCUT ONE (00:15)
[2018-01-06] MEDS: INSULIN LISPRO 100 UNIT/ML 3 ML VIAL SUBCUT PRN ×8 (02:17→22:27)
[2018-01-06] MEDS: LANSOPRAZOLE 30 MG TAB.RAP.DR PO SCH (05:31)
[2018-01-06] MEDS: GABAPENTIN 300 MG CAPSULE PO SCH ×3 (05:31→22:27)
[2018-01-06 06:50] LABS: ANION GAP 14 (5-19); BLOOD UREA NITROGEN 43 mg/dL (7-20); CALCIUM 8.6 mg/dL (8.4-10.2); CARBON DIOXIDE 24 mmol/L (22-30); CHLORIDE 98 mmol/L (98-107); GLUCOSE 205 mg/dL (75-110); POTASSIUM 4.2 mmol/L (3.6-5.0); SODIUM 135.9 mmol/L (137-145)
[2018-01-06] MEDS: ENOXAPARIN SODIUM INJ 40 MG/0.4 ML DISP.SYRIN SUBCUT SCH (10:52)
[2018-01-06] MEDS: CLOPIDOGREL BISULFATE 75 MG TABLET PO SCH (11:14)
[2018-01-06] MEDS: AMLODIPINE BESYLATE 5 MG TABLET PO SCH (11:14)
[2018-01-06] MEDS: ASPIRIN 81 MG TABLET, CHEWABLE PO SCH (11:15)
[2018-01-06] MEDS: FAMOTIDINE 20 MG TABLET PO SCH (11:15)
[2018-01-06] MEDS: ISOSORBIDE MONONITRATE 30 MG TAB.ER.24H PO SCH (11:15)
[2018-01-06] MEDS: LISINOPRIL 10 MG TABLET PO SCH (11:15)
[2018-01-06] MEDS: HYDROCHLOROTHIAZIDE 25 MG TABLET PO SCH (11:15)
[2018-01-06] MEDS: BUPROPION HCL 75 MG TABLET PO SCH ×2 (11:20→22:27)
[2018-01-06] MEDS ORDERED: GLUCAGON,HUMAN RECOMB 1 MG INJ IM PRN (13:21)
[2018-01-06] MEDS ORDERED: DEXTROSE 40% GEL 15 GM TUBE PO PRN (13:21)
[2018-01-06] MEDS ORDERED: INSULIN LISPRO 100 UNIT/ML 3 ML VIAL ONE (14:04)
[2018-01-06] MEDS ORDERED: INSULIN LISPRO 100 UNIT/ML 3 ML VIAL SUBCUT ONE (14:15)
[2018-01-06] MEDS: ACETAMINOPHEN 325 MG TABLET PO PRN (17:07)
--- NOTE | 2018-01-06 19:32 | PDOC PROGRESS REPORT ---
Subjective Progress Note for:: 01/06/18 Subjective:: The patient was actually feeling much better earlier today. On the insulin infusion his glucose was 93 at his early childhood associate blood draw. His sugar has been climbing. He felt quite good at 93 but is feeling symptomatic with headache and weakness as his sugar increases. 01/06/2018-the patient is feeling much better this morning however since the insulin infusion was turned off his sugar continues to rise despite the sliding scale and he is noticing a decline in his status. Reason For Visit: DIABETES MELLITIUS TYPE 2 WITH HYPERGLYCEMIA Physical Exam Vital Signs: Temp Pulse Resp BP Pulse Ox 98.3 F 79 16 132/56 H 100 01/06/18 16:19 01/06/18 16:19 01/06/18 16:19 01/06/18 16:19 01/06/18 16:19 Intake & Output 01/05/18 01/06/18 01/07/18 06:59 06:59 06:59 Intake Total 175 1611 Balance 175 1611 Weight 110 kg General appearance: PRESENT: no acute distress, cooperative, morbidly obese, well-developed Head exam: PRESENT: atraumatic, normocephalic Eye exam: PRESENT: conjunctiva pink, EOMI. ABSENT: scleral icterus Ear exam: PRESENT: normal external ear exam Mouth exam: PRESENT: moist, tongue midline Neck exam: PRESENT: full ROM. ABSENT: carotid bruit, JVD, lymphadenopathy Respiratory exam: PRESENT: clear to auscultation kobe, symmetrical, unlabored. ABSENT: rales, rhonchi, wheezes Cardiovascular exam: PRESENT: RRR, +S1, +S2 GI/Abdominal exam: PRESENT: normal bowel sounds, soft. ABSENT: distended, rebound, tenderness Neurological exam: PRESENT: alert, awake, oriented to person, oriented to place , oriented to time, oriented to situation, CN II-XII grossly intact Skin exam: PRESENT: dry, normal color, warm Results Laboratory Results: 01/03/18 04:14 01/06/18 05:17 01/06/18 05:17 Sodium 135.9 L Potassium 4.2 Chloride 98 Carbon Dioxide 24 Anion Gap 14 BUN 43 H Creatinine 1.98 H Est GFR ( Amer) 41 L Est GFR (Non-Af Amer) 34 L Glucose 205 H Calcium 8.6 01/02/18 20:45 Troponin I < 0.012 Impressions: Chest X-Ray 01/02/18 13:54 IMPRESSION: NO ACUTE RADIOGRAPHIC FINDING IN THE CHEST. 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 He previously was on insulin and metformin. He states that with diet and exercise he was able to work his way down to no insulin and 500 mg of metformin daily from 1 g of metformin twice daily. He cannot recall an incident that may have triggered his high sugar. Based on his symptoms he has likely had underlying hyperglycemia for at least 5-6 days and likely longer. I will check a hemoglobin A1c. I am holding his metformin and instituting Lantus 8 units daily with a Humalog sliding scale. I will likely resume his metformin based on his renal function. January 03, 2018-despite resuming Lantus the patient still has high Accu-Cheks. I did give him extra Humalog insulin this evening. I have increased his Lantus to twice daily dosing. He has hemoglobin A1c was greater than 14 and so clearly there has been some compliance issues. We will follow his Accu-Cheks and see how he does on the higher dose of Lantus. 01/04/2018-despite almost doubling his Lantus he still has hyperglycemia. I have added a fixed dose of Humalog in addition to his sliding scale before meals. With his chronic kidney failure I would like to avoid returning to metformin. He will likely do much better with insulin. He states that he has nothing from when he used to use his insulin. He will likely need a glucometer as well. I will ask foster care social worker to start working with the patient. 01/05/2018-is very disappointing that intravenous glucose is very effective and his subcutaneous dosing has been ineffective. I told him that I will have to come up with a new formulation that will likely include oral agents as well. Before I start any medications I will need to check for adjusted dose for renal function. 01/06/2018-on the insulin infusion the patient's blood glucose can be nicely controlled. Looking at the hourly rate patient requires an average of 9 units/ h which equates to a total insulin dose of 216 units. This is a tremendous amount of insulin. I am going to start the patient at 50 units of Lantus twice a day and a much more aggressive sliding scale with Humalog. If we seem to be getting closer to goal then I would let him go home and have his primary care physician continue to fine tune his regimen. He does live in [place] and so he needs to be fairly stable in order to drive that distance. (2) Chronic kidney disease (CKD) stage G3b/A3, moderately decreased glomerular filtration rate (GFR) between 30-44 mL/min/1.73 square meter and albuminuria creatinine ratio greater than 300 mg/g Is this a current diagnosis for this admission?: Yes Plan: The patient was somewhat dehydrated with hypotension responding to IV fluids. This is likely from the marked polyuria. He is status post a nephrectomy for renal cell carcinoma. His current GFR is only 38. We will continue to monitor his renal function. January 03, 2018-again he seems to be at baseline. I will recheck chemistries tomorrow. Continue current medication regimen. 01/04/2018-on his current medication regimen and with his current intake the chronic renal failure seems to remain at baseline. His estimated GFR today is 40. 01/05/2018-the patient's GFR is remaining steady. His BUN is still elevated. He is on accessory IV fluids in addition to the infusion. We do need to encourage more water intake. 01/06/2018-as noted above his renal function has been steady. (3) Dehydration Is this a current diagnosis for this admission?: Yes Plan: Likely result of his polyuria. We will continue IV fluids and recheck his chemistries in the morning. January 03, 2018-I discontinued the patient's continuous saline infusion. He is having no difficulty with his oral intake so we will encourage increased p.o. liquids. His dehydration seems to have resolved. His polyuria will improve with better glucose control. 01/04/2018-he did have a positive fluid balance of 700 mL yesterday. We are trying to continue to encourage adequate water intake. He has not exhibited any hypotension. I believe he is euvolemic at this time. 01/05/2018-I will continue the normal saline at 75 mL/h and encourage oral fluids. 01/06/2018-patient appears euvolemic at this point. (4) Coronary artery disease Is this a current diagnosis for this admission?: Yes Plan: The patient has a history of 6 cardiac stents. He also has a history of hemorrhagic stroke. We will continue atorvastatin, aspirin, Plavix and his FABIAN inhibitor. He is on a calcium channel harris but he has not been on beta blockade. 01/03/2018-the patient has a significant history of coronary artery disease with 6 stents. His regimen does not include a beta-harris. I will see if there is any contraindication and if not likely start him on low-dose metoprolol. 01/04/2018-despite his significant coronary artery disease (6 stents) the patient has remained asymptomatic. He is ambulating and his blood pressure remained stable. We will continue his current regimen at this time. 01/05/2018-continue current regimen. 01/06/2018-no changes in his current regimen. - Time Time Spent with patient: 35 or more minutes Medications reviewed and adjusted accordingly: Yes
[2018-01-06] MEDS ORDERED: FAMOTIDINE 20 MG TABLET PO SCH (22:00)
[2018-01-06] MEDS: ATORVASTATIN CALCIUM 80 MG TABLET PO SCH (22:27)
[2018-01-07] MEDS: INSULIN LISPRO 100 UNIT/ML 3 ML VIAL SUBCUT PRN ×3 (02:30→10:23)
[2018-01-07] MEDS: GABAPENTIN 300 MG CAPSULE PO SCH (05:39)
[2018-01-07] MEDS: LANSOPRAZOLE 30 MG TAB.RAP.DR PO SCH (05:39)
[2018-01-07 05:46] LABS: HEMATOCRIT 30.6 % (37.9-51.0); HEMOGLOBIN 10.6 g/dL (13.5-17.0); MEAN CORPUSCULAR HEMOGLOBIN 27.6 pg (27.0-33.4); MEAN CORPUSCULAR HGB CONC 34.4 g/dL (32.0-36.0); MEAN CORPUSCULAR VOLUME 80 fl (80-97); PLATELET COUNT 217 10^3/uL (150-450); RED BLOOD COUNT 3.83 10^6/uL (4.35-5.55); RED CELL DISTRIBUTION WIDTH 15.1 % (11.5-14.0); WHITE BLOOD COUNT 7.7 10^3/uL (4.0-10.5)
[2018-01-07 06:20] LABS: ANION GAP 12 (5-19); BLOOD UREA NITROGEN 46 mg/dL (7-20); CALCIUM 8.7 mg/dL (8.4-10.2); CARBON DIOXIDE 26 mmol/L (22-30); CHLORIDE 100 mmol/L (98-107); GLUCOSE 194 mg/dL (75-110); POTASSIUM 4.4 mmol/L (3.6-5.0); SODIUM 137.6 mmol/L (137-145)
[2018-01-07 08:00] VITALS: BP 133/62
--- NOTE | 2018-01-07 10:15 | PDOC DISCHARGE SUMMARY ---
General - Admit/Disc Date/PCP Admission Date/Primary Care Provider: 01/02/18 17:17 GARY ANGELA MD Discharge Date: 01/07/18 - Discharge Diagnosis (1) Diabetes mellitus with hyperglycemia Is this a current diagnosis for this admission?: Yes (2) Chronic kidney disease (CKD) stage G3b/A3, moderately decreased glomerular filtration rate (GFR) between 30-44 mL/min/1.73 square meter and albuminuria creatinine ratio greater than 300 mg/g Is this a current diagnosis for this admission?: Yes (3) Dehydration Is this a current diagnosis for this admission?: Yes (4) Hyponatremia Is this a current diagnosis for this admission?: Yes - Additional Information Home Medications: Amlodipine Besylate [Norvasc 10 mg Tablet] 10 mg PO DAILY 01/02/18 Aspirin [Aspirin EC] 81 mg PO DAILY 01/02/18 Atorvastatin Calcium [Lipitor 20 mg Tablet] 20 mg PO QHS 01/02/18 Bupropion HCl [Bupropion HCl Sr] 150 mg PO DAILY 01/02/18 Clopidogrel Bisulfate [Clopidogrel] 75 mg PO DAILY 01/02/18 Esomeprazole Magnesium [Nexium] 40 mg PO DAILY 01/02/18 Gabapentin 300 mg PO Q8 01/02/18 Hydrochlorothiazide [Hydrodiuril 25 mg Tablet] 25 mg PO DAILY 01/02/18 Isosorbide Mononitrate [Isosorbide Mononitrate ER] 30 mg PO DAILY 01/02/18 Lisinopril [Zestril] 20 mg PO Q12 01/02/18 Metformin HCl [Glucophage 500 mg Tablet] 500 mg PO DAILY 01/02/18 Ranitidine HCl [Zantac 150 mg Tablet] 150 mg PO Q12 01/02/18 History of Present Illness History of Present Illness: BONI MANCUSO is a 72 year old male.his pleasant 72-year-old gentleman reports 5-6 days of marked increase in urinary frequency and increased thirst. He has been feeling weak in general for 7-10 days. He reports being tired all the time. He denies any fever. He does have a chronic cough from his hiatal hernia with acid reflux. His diabetes was previously well controlled with only 500 mg of metformin daily. He worked his way down from 1000 mg twice daily. Hospital Course Hospital Course: Is 72 years old male patient from [place] came to [place] to visit family. He presented with chief complaint of increased urinary frequency thirsty and excessive drinking. At presentation patient was found to have hyperglycemia with blood glucose of 540. Initially he is started on insulin drip and cautiously hydrated. His hemoglobin A1c found to be 14 which reflect his that his diabetes is out of control. I advised the patient to do lifestyle modification and to comply with his medication. Patient is going to be discharged with Lantus 30 units subcu nightly. Patient also advised to visit his primary care physician to further modify his medication. End of dictation Physical Exam Vital Signs: Temp Pulse Resp BP Pulse Ox 97.8 F 68 16 133/62 H 98 01/07/18 08:00 01/07/18 08:00 01/07/18 08:00 01/07/18 08:00 01/07/18 08:00 Intake & Output 01/06/18 01/07/18 01/08/18 06:59 06:59 06:59 Intake Total 175 2421 Balance 175 2421 Weight 110 kg 110.2 kg General appearance: PRESENT: no acute distress, well-developed, well-nourished Head exam: PRESENT: atraumatic, normocephalic Eye exam: PRESENT: conjunctiva pink, EOMI, PERRLA. ABSENT: scleral icterus Ear exam: PRESENT: normal external ear exam Mouth exam: PRESENT: moist, tongue midline Neck exam: ABSENT: carotid bruit, JVD, lymphadenopathy, thyromegaly Respiratory exam: PRESENT: clear to auscultation kobe. ABSENT: rales, rhonchi, wheezes Cardiovascular exam: PRESENT: RRR. ABSENT: diastolic murmur, rubs, systolic murmur Pulses: PRESENT: normal dorsalis pedis pul Vascular exam: PRESENT: normal capillary refill GI/Abdominal exam: PRESENT: normal bowel sounds, soft. ABSENT: distended, guarding, mass, organolmegaly, rebound, tenderness Rectal exam: PRESENT: deferred Extremities exam: PRESENT: full ROM. ABSENT: calf tenderness, clubbing, pedal edema Neurological exam: PRESENT: alert, awake, oriented to person, oriented to place , oriented to time, oriented to situation, CN II-XII grossly intact. ABSENT: motor sensory deficit Psychiatric exam: PRESENT: appropriate affect, normal mood. ABSENT: homicidal ideation, suicidal ideation Skin exam: PRESENT: dry, intact, warm. ABSENT: cyanosis, rash Results Laboratory Results: 01/07/18 04:34 01/07/18 04:34 01/07/18 01/07/18 04:34 04:34 WBC 7.7 RBC 3.83 L Hgb 10.6 L Hct 30.6 L MCV 80 MCH 27.6 MCHC 34.4 RDW 15.1 H Plt Count 217 Sodium 137.6 Potassium 4.4 Chloride 100 Carbon Dioxide 26 Anion Gap 12 BUN 46 H Creatinine 1.89 H Est GFR ( Amer) 43 L Est GFR (Non-Af Amer) 35 L Glucose 194 H Calcium 8.7 01/02/18 20:45 Troponin I < 0.012 Impressions: Chest X-Ray 01/02/18 13:54 IMPRESSION: NO ACUTE RADIOGRAPHIC FINDING IN THE CHEST. Qualifiers - * PATIENT BEING DISCHARGED WITH ANY OF THE FOLLOWING DIAGNOSIS: No
[2018-01-07] MEDS ORDERED: INSULIN GLARGINE,HUM.REC.ANLOG 300 UNIT/3 ML INSULN.PEN SUBCUT SCH (22:00)
== END 2018-01-07 11:40 | disposition home or self-care (01) | DRG 638 ==
LOC: ER 13:51 → EH 17:17 → 4N 20:22
PROVIDERS: ADMIT Emergency Medicine; ATTEND Emergency Medicine
DX: E11.65 Type 2 diabetes mellitus with hyperglycemia (principal); E87.1 Hypo-osmolality and hyponatremia; E11.40 Type 2 diabetes mellitus with diabetic neuropathy, unspecified; I25.10 Atherosclerotic heart disease of native coronary artery without angina pectoris; N18.3 Chronic kidney disease, stage 3 (moderate); K21.9 Gastro-esophageal reflux disease without esophagitis; I10 Essential (primary) hypertension; E78.5 Hyperlipidemia, unspecified; K44.9 Diaphragmatic hernia without obstruction or gangrene; E86.0 Dehydration; Z60.2 Problems related to living alone; Z79.84 Long term (current) use of oral hypoglycemic drugs
CPT/HCPCS: 36415; 71045; 80048; 80053; 81001; 82533; 82550; 82553; 82803; 82962; 83036; 83605; 84484; 85025; 85027; 93005; 93010; 94660; 96360; 99285; J1650; J1815; J3490; J7030

== ENCOUNTER 2019-03-31 14:59 | Inpatient (IN) | payer MEDICARE ==
[2019-03-31 15:26] LABS: ABSOLUTE EOSINOPHILS # (AUTO) 0.2 10^3/uL (0.0-0.6); ABSOLUTE LYMPHOCYTES (AUTO) 1.1 10^3/uL (0.5-4.7); ABSOLUTE MONOCYTES (AUTO) 2.1 10^3/uL (0.1-1.4); ABSOLUTE NEUT (AUTO) 11.4 10^3/uL (1.7-8.2); BASOPHILS % (AUTO) 0.3 % (0-2); EOSINOPHILS % (AUTO) 1.5 % (0-6); HEMATOCRIT 38.9 % (37.9-51.0); HEMOGLOBIN 13.5 g/dL (13.5-17.0); LYMPHOCYTES % (AUTO) 7.2 % (13-45); MEAN CORPUSCULAR HEMOGLOBIN 29.9 pg (27.0-33.4); MEAN CORPUSCULAR HGB CONC 34.6 g/dL (32.0-36.0); MEAN CORPUSCULAR VOLUME 87 fl (80-97); PLATELET COUNT 342 10^3/uL (150-450); RED CELL DISTRIBUTION WIDTH 13.5 % (11.5-14.0); TOTAL CELLS COUNTED % (AUTO) 100 %; WHITE BLOOD COUNT 14.8 10^3/uL (4.0-10.5)
[2019-03-31] MEDS ORDERED: HYDROMORPHONE HCL INJ/PF 2 MG/ML AMPULE IV ONE (15:26)
[2019-03-31] MEDS ORDERED: ONDANSETRON HCL INJ/PF 4 MG/2 ML SDV IV ONE (15:26)
--- NOTE | 2019-03-31 15:27 | ER Document Report ---
ED General - General Chief Complaint: Chest Pain Stated Complaint: ABDOMINAL PAIN,CHEST TIGHTNESS Notes: 73-year-old male presents primarily with bilateral lower quad abdominal pain since Saturday about 4 days worsening in nature having trouble eating cannot keep anything down and is nauseous but cannot vomit because he had a gastric sleeve/banding. He felt constipated to and had a stool yesterday after taking Dulcolax. Minimal gas today. Normal urinary symptoms. No chest pain as described in triage but does feel short of breath because his belly feels big. Surgery was done at [facility]. TRAVEL OUTSIDE OF THE [place] IN LAST 30 DAYS: No - Related Data Allergies/Adverse Reactions: No Known Allergies Allergy (Unverified 01/02/18 15:01) Past Medical History - Social History Smoking Status: Former Smoker Family History: CAD, DM Patient has suicidal ideation: No Patient has homicidal ideation: No - Past Medical History Cardiac Medical History: Reports: Hx Coronary Artery Disease, Hx Hypercholesterolemia, Hx Hypertension Endocrine Medical History: Reports: Hx Diabetes Mellitus Type 2 Renal/ Medical History: Denies: Hx Peritoneal Dialysis Malignancy Medical History: Reports Hx Renal (Kidney) Cancer GI Medical History: Reports: Hx Hiatal Hernia Psychiatric Medical History: Reports: Hx Depression Past Surgical History: Reports: Hx Cardiac Catheterization - stents x 6, Hx Coronary Stent - X6, Other - Nephrectomy, TURP, vasectomy Review of Systems - Review of Systems Notes: REVIEW OF SYSTEMS GEN: Denies fever, chills, weight loss ENT: Denies sore throat, nasal discharge, ear pain EYES: Denies blurry vision, eye pain, discharge CV: Denies chest pain, palpitations, edema RESP: Denies cough, shortness of breath, wheezing GI: See HPI MSK: Denies joint pain/swelling, edema, SKIN: Denies rash, skin lesions LYMPH: Denies swollen glands/lymph nodes NEURO: Denies headache, focal weakness or numbness, dizziness PSYCH: Denies depression, suicidal or homicidal ideation PHYSICAL EXAMINATION General: No acute distress, well-nourished Head: Atraumatic, normocephalic ENT: Mouth normal, oropharynx moist, no exudates or tonsillar enlargement Eyes: Conjunctiva normal, pupils equal, lids normal Neck: No JVD, supple, no guarding CVS: Normal rate, regular rhythm, no murmurs Resp: No resp distress, equal and normal breath sounds bilaterally widely distended with bilateral lower quadrant tenderness nondistended, soft, no tenderness to palpation, no rebound or guarding Ext: No deformities, no edema, normal range of motion in upper and lower ext Back: No CVA or midline TTP Skin: No rash, warm Lymphatic: No lymphadeopathy noted Neuro: Awake, alert. Face symmetric. GCS 15. Physical Exam - Vital signs Vitals: Resp Pulse Ox 20 94 03/31/19 15:12 03/31/19 15:12 Course - Re-evaluation Re-evalutation: 03/31/19 20:56 Abdominal pain with shortness of breathno chest pain History of Alycia fundoplication and gastric bypass Concern for obstruction reflux anastomotic leak, etc. Less concern for ACS Imaging is consistent with small bowel obstruction Labs are essentially normal except for mildly cytosis. Given additional pain medicine then refused further dosing. Made n.p.o. Discussed with Dr. Quintanilla for admission. - Vital Signs Vital signs: Temp Pulse Resp BP Pulse Ox 98.1 F 17 91/49 L 94 03/31/19 15:25 03/31/19 18:01 03/31/19 18:01 03/31/19 18:01 - Laboratory Result Diagrams: 03/31/19 15:07 03/31/19 15:07 Laboratory results interpreted by me: 03/31/19 03/31/19 15:07 15:07 WBC 14.8 H Lymph % (Auto) 7.2 L [place] % (Auto) 14.0 H Absolute Neuts (auto) 11.4 H Absolute Monos (auto) 2.1 H BUN 42 H Creatinine 1.93 H Est GFR ( Amer) 42 L Est GFR (MDRD) Non-Af 34 L Glucose 151 H Discharge - Discharge Clinical Impression: Small bowel obstruction Condition: Good Disposition: ADMITTED INPATIENT Admitting Provider: Surgicalist Unit Admitted: Surgical Floor
[2019-03-31 15:41] LABS: APPEARANCE,URINE SLIGHTLY-CLOUDY; BILIRUBIN,URINE NEGATIVE (NEGATIVE); COLOR,URINE YELLOW; GLUCOSE, URINE NEGATIVE (NEGATIVE); KETONES,URINE NEGATIVE (NEGATIVE); LEUKOCYTE ESTERASE,URINE NEGATIVE (NEGATIVE); NITRITE,URINE NEGATIVE (NEGATIVE); PROTEIN,URINE NEGATIVE (NEGATIVE); URINE SPECIFIC GRAVITY 1.018; UROBILINOGEN,URINE NEGATIVE mg/dL (<2.0)
[2019-03-31 15:43] LABS: ALBUMIN 4.1 g/dL (3.5-5.0); ALKALINE PHOSPHATASE 104 U/L (38-126); ANION GAP 13 (5-19); ASPARTATE AMINO TRANSFERASE 19 U/L (17-59); BILIRUBIN,DIRECT 0.3 mg/dL (0.0-0.4); BILIRUBIN,TOTAL 0.6 mg/dL (0.2-1.3); BLOOD UREA NITROGEN 42 mg/dL (7-20); CALCIUM 9.2 mg/dL (8.4-10.2); CARBON DIOXIDE 24 mmol/L (22-30); CHLORIDE 101 mmol/L (98-107); GLUCOSE 151 mg/dL (75-110); POTASSIUM 4.3 mmol/L (3.6-5.0); TOTAL PROTEIN 7.4 g/dL (6.3-8.2)
--- NOTE | 2019-03-31 16:12 | RADIOLOGY REPORT (SQ) ---
EXAM DESCRIPTION: CHEST 2 VIEWS COMPLETED DATE/TIME: 03/31/2019 3:57 pm REASON FOR STUDY: CHEST PAIN COMPARISON: AP chest 01/02/2018 EXAM PARAMETERS: NUMBER OF VIEWS: two views TECHNIQUE: Digital Frontal and Lateral radiographic views of the chest acquired. RADIATION DOSE: NA LIMITATIONS: none FINDINGS: LUNGS AND PLEURA: No opacities, masses or pneumothorax. No pleural effusion. MEDIASTINUM AND HILAR STRUCTURES: No masses or contour abnormalities. HEART AND VASCULAR STRUCTURES: Heart normal size. No evidence for failure. BONES: No acute findings. HARDWARE: None in the chest. OTHER: No other significant finding. IMPRESSION: NO ACUTE RADIOGRAPHIC FINDING IN THE CHEST. TECHNICAL DOCUMENTATION: JOB ID: [id number] [employer]- All Rights Reserved Reading location - IP/workstation name: [email or web address]
--- NOTE | 2019-03-31 16:34 | RADIOLOGY REPORT (SQ) ---
EXAM DESCRIPTION: CT ABD/PELVIS ORAL ONLY COMPLETED DATE/TIME: 03/31/2019 4:10 pm REASON FOR STUDY: abd painb gastric bypass COMPARISON: None. TECHNIQUE: CT scan of the abdomen and pelvis performed without intravenous contrast. Elevated creat inine. Patient drank a small amount of oral contrast immediately before scanning. Images reviewed w ith lung, soft tissue, and bone windows. Reconstructed coronal and sagittal MPR images reviewed. All images stored on PACS. All CT scanners at this facility use dose modulation, iterative reconstruction, and/or weight based d osing when appropriate to reduce radiation dose to as low as reasonably achievable (ALARA). [facility]: Dose Right [facility]: CareDose [facility]: Dose Right [facility]: Teradose 4D [facility]: [employer] RADIATION DOSE: CT Rad equipment meets quality standard of care and radiation dose reduction techniq ues were employed. CTDIvol: 16.5 mGy. DLP: 1035 mGy-cm.mGy. LIMITATIONS: None. FINDINGS: Patient has a Alycia fundoplication, best shown on coronal images 39 through 49, and axial images 18-24. Patient drank a small amount of oral contrast immediately prior to the scan. There i s oral contrast in a thick walled distal esophagus likely due to esophagitis. Oral contrast empties into duodenum. Proximal small bowel is nondilated. Mid and distal small bowel exhibits fluid-filled loops without a definite transition point, worrisome for partial small bowel o bstruction. No free intraperitoneal air or free fluid. No mesenteric adenopathy. Scattered colonic diverticuli without CT signs of acute diverticulitis. LOWER CHEST: No significant findings. No nodules or infiltrates. NON-CONTRASTED LIVER, SPLEEN, ADRENALS: Evaluation limited by lack of IV contrast. No identified sign ificant masses. PANCREAS: No masses. No peripancreatic inflammatory changes. GALLBLADDER: No identified stones by CT criteria. No inflammatory changes to suggest cholecystitis. RIGHT KIDNEY AND URETER: 1 cm partially calcified soft tissue nodule right lower pole kidney coronal image 40. This could represent complex cyst or perhaps the lesion post RF ablation. Right midpole 2 .3 cm complex septated cyst. Consider non contrasted MRI for further characterization. Elevated cre atinine today precluded IV contrast exam. 2 mm calcification right upper pole kidney. No right ure teral stones. No hydronephrosis or hydroureter. LEFT KIDNEY AND URETER: Post nephrectomy AORTA AND RETROPERITONEUM: No aneurysm. No retroperitoneal masses or adenopathy. Bilateral external iliac vein stents, left common femoral vein stent. BOWEL AND PERITONEAL CAVITY: As above APPENDIX: Normal. PELVIS, BLADDER, AND ABDOMINAL WALL:No abnormal masses. No free fluid. Bladder normal. BONES: No significant findings. OTHER: No other significant finding. IMPRESSION: Post Alycia fundoplication with gastroesophageal reflux and distal esophageal wall thick ening worrisome for esophagitis. Nonspecific mild distention of fluid-filled mid and distal small bowel loops without clear transition point. Colon decompressed. Post left nephrectomy. Indeterminate right 1 cm lower pole renal lesion, complex 2.5 cm cyst right m id-pole kidney. Consider ultrasound or MR for further characterization, given elevated creatinine COMMENT: Quality ID # [id number]: Final reports with documentation of one or more dose reduction techniques (e.g., Automated exposure control, adjustment of the mA and/or kV according to patient size, use of iterative reconstruction technique) TECHNICAL DOCUMENTATION: JOB ID: [id number] [employer]- All Rights Reserved Reading location - IP/workstation name: [email or web address]
[2019-03-31] MEDS ORDERED: DEXTROSE 40% GEL 15 GM TUBE PO PRN ×4 (19:07→19:13)
[2019-03-31] MEDS ORDERED: DEXTROSE 50%-WATER 25 GM/50 ML DISP.SYRIN IV PRN ×4 (19:07→19:13)
[2019-03-31] MEDS ORDERED: GLUCAGON,HUMAN RECOMB 1 MG INJ SUBCUT PRN (19:07)
--- NOTE | 2019-03-31 19:07 | PDOC H&P ---
History of Present Illness Admission Date/PCP: 03/31/19 17:13 Patient complains of: Diffuse crampy abdominal pain History of Present Illness: BONI MANCUSO is a 73 year old male with history of multiple abdominal surgeries including left kidney resection for malignancy back in 1989, laparoscopic Alycia fundoplication, exploratory laparotomy for lysis of adhes ions, now presenting with several day history of diffuse abdominal distention with nausea with a crampy diffuse abdominal pain. He did have a bowel movement yesterday and has been passing gas. Patient states that he is unable to vomit due to his Alycia fundoplication. No fever. No blood per rectum. 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 Social History Smoking Status: Former Smoker Frequency of Alcohol Use: None Drugs: None Hx Prescription Drug Abuse: No Family History Family History: CAD, DM Parental Family History Reviewed: Yes - Diabetes and heart disease Children Family History Reviewed: Yes Sibling(s) Family History Reviewed.: Yes Medication/Allergy Allergies/Adverse Reactions: No Known Allergies Allergy (Unverified 01/02/18 15:01) Review of Systems All systems: reviewed and no additional remarkable complaints except as stated Gastrointestinal: PRESENT: as per HPI Physical Exam Vital Signs: Temp Pulse Resp BP Pulse Ox 98.1 F 17 91/49 L 94 03/31/19 15:25 03/31/19 18:01 03/31/19 18:01 03/31/19 18:01 Intake & Output 03/30/19 03/31/19 04/01/19 06:59 06:59 06:59 Weight 106.594 kg General appearance: PRESENT: no acute distress, cooperative Eye exam: PRESENT: conjunctiva pink Neck exam: PRESENT: other - Supple with no masses and no tenderness Respiratory exam: PRESENT: clear to auscultation kobe Cardiovascular exam: PRESENT: RRR GI/Abdominal exam: PRESENT: other - Soft but distended with mild diffuse abdomin al tenderness without peritoneal signs, high-pitched intermittent bowel sounds. Well-healed upper midline scar as well as other smaller scars with no palpable hernia defects Extremities exam: PRESENT: other - No edema Neurological exam: PRESENT: alert, awake Psychiatric exam: PRESENT: appropriate affect Skin exam: PRESENT: warm Results Laboratory Results: 03/31/19 15:07 03/31/19 15:07 03/31/19 03/31/19 03/31/19 15:07 15:07 15:24 WBC 14.8 H RBC 4.50 Hgb 13.5 Hct 38.9 MCV 87 MCH 29.9 MCHC 34.6 RDW 13.5 Plt Count 342 Seg Neutrophils % 77.0 Sodium 138.4 Potassium 4.3 Chloride 101 Carbon Dioxide 24 Anion Gap 13 BUN 42 H Creatinine 1.93 H Est GFR ( Amer) 42 L Glucose 151 H Calcium 9.2 Total Bilirubin 0.6 AST 19 Alkaline Phosphatase 104 Total Protein 7.4 Albumin 4.1 Urine Color YELLOW Urine Appearance SLIGHTLY-CLOUDY Urine pH 5.0 Ur Specific [place] 1.018 Urine Protein NEGATIVE Urine Glucose (UA) NEGATIVE Urine Ketones NEGATIVE Urine Blood NEGATIVE Urine Nitrite NEGATIVE Ur Leukocyte Esterase NEGATIVE Urine WBC (Auto) 3 Urine RBC (Auto) 0 03/31/19 15:07 Troponin I < 0.012 Impressions: Chest X-Ray 03/31/19 00:00 IMPRESSION: NO ACUTE RADIOGRAPHIC FINDING IN THE CHEST. Abdomen/Pelvis CT 03/31/19 15:25 IMPRESSION: Post Alycia fundoplication with gastroesophageal reflux and distal esophageal wall thickening worrisome for esophagitis. Nonspecific mild distention of fluid-filled mid and distal small bowel loops without clear transition point. Colon decompressed. Post left nephrectomy. Indeterminate right 1 cm lower pole renal lesion, complex 2.5 cm cyst right mid-pole kidney. Consider ultrasound or MR for further characterization, given elevated creatinine Assessment & Plan - Diagnosis (1) Partial small bowel obstruction Is this a current diagnosis for this admission?: Yes Plan: Presenting symptoms highly suspicious for partial small bowel obstruction. Will admit the patient place NG to low wall intermittent suction. IV fluids. Observation. Repeat abdominal x-rays in the morning.
[2019-03-31] MEDS ORDERED: GLUCAGON,HUMAN RECOMB 1 MG INJ IM PRN (19:13)
[2019-03-31] MEDS ORDERED: PHARMACY COMMUNICATION ORDER MC NR (19:15)
[2019-03-31] MEDS: ENOXAPARIN SODIUM INJ 30 MG/0.3 ML DISP.SYRIN SUBCUT SCH (20:29)
[2019-03-31] MEDS: FAMOTIDINE INJ/PF 20 MG/2 ML SDV IV SCH (21:49)
[2019-03-31] MEDS: NORMAL SALINE 1000 ML 1,000 ML IV PRN (23:30)
[2019-04-01] MEDS: INSULIN REG, HUMAN 100 UNIT/ML 3 ML VIAL (PYX) SUBCUT SCH ×4 (00:02→17:32)
[2019-04-01] MEDS: MORPHINE SULFATE 10 MG/ML INJ IV PRN ×2 (01:28→21:43)
--- NOTE | 2019-04-01 01:29 | RADIOLOGY REPORT (SQ) ---
Abdomen single view on 04/01/2019 at 1:00 AM Clinical indications: NG tube placement COMPARISON: 03/31/2019 FINDINGS: NG tube extends into the upper stomach in good position. Bowel gas pattern is nonspecific. A few wires are noted projecting over the chest and upper abdomen. IMPRESSION: NG tube tip in the upper stomach.
--- NOTE | 2019-04-01 03:51 | RADIOLOGY REPORT (SQ) ---
CLINICAL HISTORY: Check Placement of NG Tube COMPARISON: None. TECHNIQUE: XR ABDOMEN 1 VIEW (KUB) 03/31/2019 7:11 PM HOSPITAL PHARMACY DIRECTOR FINDINGS: Bowel gas pattern is nonspecific. There are no abnormal radiopaque foreign bodies or abnormal calcifications. Osseous structures are grossly unremarkable. NG tube tip is in the stomach. There is vague left basilar airspace disease. There are several prominent air-filled dilated small bowel loops in the central abdomen. IMPRESSION: NG tube tip in the stomach.
[2019-04-01] MEDS ORDERED: HYDRALAZINE HCL INJ/PF 20 MG/1 ML SDV IV PRN (06:17)
--- NOTE | 2019-04-01 06:30 | PDOC CONSULTATION ---
Consultation Consult Date: 04/01/19 Attending physician:: REGGIE BAILEY Provider Consulted: ELTON SEGURA Consult reason:: Hypertension and diabetes History of Present Illness Admission Date/PCP: 03/31/19 17:13 History of Present Illness: BONI MANCUSO is a 73 year old male with history of hypertension, diabetes, CKD 3, numerous abdominal surgeries and left nephrectomy for malignancy, status post Alycia fundoplication who presents with abdominal pain and distention found to have partial small bowel obstruction. NG tube is placed for decompression and is admitted to surgery. Patient customarily takes insulin and multiple antihypertensive agents by mouth. 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 Endocrine Medical History: Reports: Diabetes Mellitus Type 2 Malignancy Medical History: Reports: Renal (Kidney) Cancer GI Medical History: Reports: Hiatal Hernia Psychiatric Medical History: Reports: Depression Past Surgical History Past Surgical History: Reports: Cardiac Catheterization - stents x 6, Coronary Stent - X6, Other - Nephrectomy, TURP, vasectomy Social History Smoking Status: Former Smoker Frequency of Alcohol Use: None Drugs: None Hx Prescription Drug Abuse: No - Advance Directive Resuscitation Status: Full Code Family History Family History: CAD, DM Parental Family History Reviewed: No Children Family History Reviewed: No Sibling(s) Family History Reviewed.: No Medication/Allergy Home Medications: Amlodipine Besylate [Norvasc 10 mg Tablet] 10 mg PO DAILY 03/31/19 Aspirin [Adult Low Dose Aspirin EC] 81 mg PO QAM 03/31/19 Atorvastatin Calcium [Lipitor 20 mg Tablet] 20 mg PO QHS 03/31/19 Bupropion HCl [Bupropion HCl Sr] 150 mg PO DAILY 03/31/19 Clopidogrel Bisulfate [Plavix 75 mg Tablet] 75 mg PO QAM 03/31/19 Gabapentin [Neurontin 300 mg Capsule] 300 mg PO Q8 03/31/19 Hydrochlorothiazide [Hydrodiuril 25 mg Tablet] 25 mg PO DAILY 03/31/19 Insulin Glargine,Hum.rec.anlog [Lantus Insulin 100 Unit/1 ml 10 ml] 20 units SQ Q12 03/31/19 Isosorbide Mononitrate [Imdur 30 mg Tablet.er] 30 mg PO DAILY 03/31/19 Lisinopril [Zestril] 20 mg PO Q12 03/31/19 Ubidecarenone/Vit E Acet [Co Q-10 100 mg Softgel] 1 cap PO QAM 03/31/19 Allergies/Adverse Reactions: No Known Allergies Allergy (Unverified 01/02/18 15:01) Review of Systems Constitutional: PRESENT: as per HPI, anorexia, fatigue. ABSENT: chills Eyes: ABSENT: visual disturbances Ears: ABSENT: hearing changes Cardiovascular: ABSENT: chest pain, dyspnea on exertion, edema, orthropnea, palpitations Respiratory: ABSENT: cough, hemoptysis Gastrointestinal: PRESENT: as per HPI, abdominal pain, bloating. ABSENT: constipation Genitourinary: ABSENT: dysuria, hematuria Musculoskeletal: ABSENT: joint swelling Integumentary: ABSENT: rash, wounds Neurological: ABSENT: abnormal gait, abnormal speech, confusion, dizziness, focal weakness, syncope Psychiatric: ABSENT: anxiety, depression, homidical ideation, suicidal ideation Endocrine: ABSENT: cold intolerance, heat intolerance, polydipsia, polyuria Hematologic/Lymphatic: ABSENT: easy bleeding, easy bruising Physical Exam Vital Signs: Temp Pulse Resp BP Pulse Ox 98.0 F 18 116/52 L 92 04/01/19 01:07 04/01/19 01:07 04/01/19 01:07 04/01/19 00:01 Intake & Output 03/30/19 03/31/19 04/01/19 11:59 11:59 11:59 Weight 106.594 kg General appearance: PRESENT: cooperative, mild distress, well-developed, well- nourished Head exam: PRESENT: atraumatic, normocephalic Eye exam: PRESENT: conjunctiva pink, EOMI, PERRLA. ABSENT: scleral icterus Ear exam: PRESENT: normal external ear exam Mouth exam: PRESENT: moist, tongue midline Neck exam: ABSENT: carotid bruit, JVD, lymphadenopathy, thyromegaly Respiratory exam: PRESENT: accessory muscle use, clear to auscultation kobe, tachypnea. ABSENT: rales, rhonchi, wheezes Cardiovascular exam: PRESENT: RRR. ABSENT: diastolic murmur, rubs, systolic murmur Pulses: PRESENT: normal dorsalis pedis pul Vascular exam: PRESENT: normal capillary refill GI/Abdominal exam: PRESENT: distended, hypoactive bowel sounds. ABSENT: guarding, hyperactive bowel sounds Rectal exam: PRESENT: deferred Extremities exam: PRESENT: full ROM. ABSENT: calf tenderness, clubbing, pedal edema Neurological exam: PRESENT: alert, awake, oriented to person, oriented to place, oriented to time, oriented to situation, CN II-XII grossly intact. ABSENT: motor sensory deficit Psychiatric exam: PRESENT: appropriate affect, normal mood. ABSENT: homicidal ideation, suicidal ideation Skin exam: PRESENT: dry, intact, warm. ABSENT: cyanosis, rash Results Laboratory Results: 03/31/19 15:07 03/31/19 15:07 03/31/19 03/31/19 03/31/19 15:07 15:07 15:24 WBC 14.8 H RBC 4.50 Hgb 13.5 Hct 38.9 MCV 87 MCH 29.9 MCHC 34.6 RDW 13.5 Plt Count 342 Seg Neutrophils % 77.0 Sodium 138.4 Potassium 4.3 Chloride 101 Carbon Dioxide 24 Anion Gap 13 BUN 42 H Creatinine 1.93 H Est GFR ( Amer) 42 L Glucose 151 H Calcium 9.2 Total Bilirubin 0.6 AST 19 Alkaline Phosphatase 104 Total Protein 7.4 Albumin 4.1 Urine Color YELLOW Urine Appearance SLIGHTLY-CLOUDY Urine pH 5.0 Ur Specific [place] 1.018 Urine Protein NEGATIVE Urine Glucose (UA) NEGATIVE Urine Ketones NEGATIVE Urine Blood NEGATIVE Urine Nitrite NEGATIVE Ur Leukocyte Esterase NEGATIVE Urine WBC (Auto) 3 Urine RBC (Auto) 0 03/31/19 03/31/19 15:07 18:15 Troponin I < 0.012 < 0.012 Impressions: Chest X-Ray 03/31/19 00:00 IMPRESSION: NO ACUTE RADIOGRAPHIC FINDING IN THE CHEST. Abdomen/Pelvis CT 03/31/19 15:25 IMPRESSION: Post Alycia fundoplication with gastroesophageal reflux and distal esophageal wall thickening worrisome for esophagitis. Nonspecific mild distention of fluid-filled mid and distal small bowel loops without clear transition point. Colon decompressed. Post left nephrectomy. Indeterminate right 1 cm lower pole renal lesion, complex 2.5 cm cyst right mid-pole kidney. Consider ultrasound or MR for further characterization, given elevated creatinine KUB X-Ray 04/01/19 00:00 IMPRESSION: NG tube tip in the upper stomach. Assessment and Plan - Diagnosis (1) Hypertension Is this a current diagnosis for this admission?: Yes Plan: Hydralazine as needed (2) Diabetes Is this a current diagnosis for this admission?: Yes Plan: Sliding scale insulin every 6 hours as needed (3) Partial small bowel obstruction Is this a current diagnosis for this admission?: Yes Plan: Defer to surgery (4) Chronic kidney disease (CKD) stage G3a/A2, moderately decreased glomerular filtration rate (GFR) between 45-59 mL/min/1.73 square meter and albuminuria creatinine ratio between 30-299 mg/g Is this a current diagnosis for this admission?: Yes Plan: At baseline avoid nephrotoxic meds and doses, follow-up chemistry - Time Time Spent with patient: 15-24 minutes
[2019-04-01 07:44] LABS: HEMATOCRIT 37.4 % (37.9-51.0); MEAN CORPUSCULAR HGB CONC 34.8 g/dL (32.0-36.0); MEAN CORPUSCULAR VOLUME 86 fl (80-97); PLATELET COUNT 249 10^3/uL (150-450); RED BLOOD COUNT 4.34 10^6/uL (4.35-5.55); RED CELL DISTRIBUTION WIDTH 13.5 % (11.5-14.0); WHITE BLOOD COUNT 7.8 10^3/uL (4.0-10.5)
[2019-04-01 08:07] LABS: ANION GAP 10 (5-19); BLOOD UREA NITROGEN 41 mg/dL (7-20); CALCIUM 8.3 mg/dL (8.4-10.2); CARBON DIOXIDE 27 mmol/L (22-30); CHLORIDE 102 mmol/L (98-107); GLUCOSE 105 mg/dL (75-110); POTASSIUM 4.2 mmol/L (3.6-5.0)
[2019-04-01] MEDS: NORMAL SALINE 1000 ML 1,000 ML IV PRN ×2 (09:00→20:02)
[2019-04-01] MEDS: FAMOTIDINE INJ/PF 20 MG/2 ML SDV IV SCH ×2 (09:12→21:43)
[2019-04-01] MEDS: ENOXAPARIN SODIUM INJ 30 MG/0.3 ML DISP.SYRIN SUBCUT SCH (09:13)
[2019-04-01] MEDS ORDERED: PHENOL/SODIUM PHENOLATE 100 SPRAY/177 ML BOTTLE PO PRN (12:38)
--- NOTE | 2019-04-01 14:27 | EKG REPORT ---
SEVERITY:- BORDERLINE ECG - SINUS RHYTHM BORDERLINE LEFT AXIS DEVIATION CONSIDER INFERIOR INFARCT BORDERLINE T ABNORMALITIES, ANTERIOR LEADS : Confirmed by: Tanmay Thayer 01-Apr-2019 14:26:49
--- NOTE | 2019-04-01 14:49 | PDOC PROGRESS REPORT ---
Subjective Progress Note for:: 04/01/19 Reason For Visit: PARTIAL SMALL BOWEL OBSTRUCTION Physical Exam Vital Signs: Temp Pulse Resp BP Pulse Ox 98.1 F 81 14 141/49 H 95 04/01/19 10:35 04/01/19 10:35 04/01/19 10:35 04/01/19 10:35 04/01/19 10:35 Intake & Output 03/31/19 04/01/19 04/02/19 06:59 06:59 06:59 Intake Total 0 1000 Output Total 500 875 Balance -500 125 Weight 106.594 kg General appearance: PRESENT: no acute distress Head exam: PRESENT: atraumatic, normocephalic Eye exam: PRESENT: EOMI, PERRLA. ABSENT: scleral icterus Mouth exam: PRESENT: moist, neck supple Neck exam: ABSENT: meningismus, tenderness, thyromegaly, tracheal deviation Respiratory exam: PRESENT: unlabored. ABSENT: tachypnea Cardiovascular exam: ABSENT: tachycardia GI/Abdominal exam: PRESENT: distended - mild, soft. ABSENT: tenderness Rectal exam: PRESENT: deferred Extremities exam: ABSENT: clubbing Musculoskeletal exam: ABSENT: deformity Neurological exam: PRESENT: alert, awake, oriented to person, oriented to place, oriented to time, oriented to situation, CN II-XII grossly intact. ABSENT: motor sensory deficit Psychiatric exam: ABSENT: agitated, anxious, depressed Focused psych exam: ABSENT: delusional Skin exam: ABSENT: cyanosis, erythema, jaundice Results Laboratory Results: 04/01/19 06:50 04/01/19 06:50 03/31/19 03/31/19 03/31/19 15:07 15:07 15:24 WBC 14.8 H RBC 4.50 Hgb 13.5 Hct 38.9 MCV 87 MCH 29.9 MCHC 34.6 RDW 13.5 Plt Count 342 Seg Neutrophils % 77.0 Sodium 138.4 Potassium 4.3 Chloride 101 Carbon Dioxide 24 Anion Gap 13 BUN 42 H Creatinine 1.93 H Est GFR ( Amer) 42 L Glucose 151 H Calcium 9.2 Total Bilirubin 0.6 AST 19 Alkaline Phosphatase 104 Total Protein 7.4 Albumin 4.1 Urine Color YELLOW Urine Appearance SLIGHTLY-CLOUDY Urine pH 5.0 Ur Specific [place] 1.018 Urine Protein NEGATIVE Urine Glucose (UA) NEGATIVE Urine Ketones NEGATIVE Urine Blood NEGATIVE Urine Nitrite NEGATIVE Ur Leukocyte Esterase NEGATIVE Urine WBC (Auto) 3 Urine RBC (Auto) 0 04/01/19 04/01/19 06:50 06:50 WBC 7.8 RBC 4.34 L Hgb 13.0 L Hct 37.4 L MCV 86 MCH 30.0 MCHC 34.8 RDW 13.5 Plt Count 249 Seg Neutrophils % Sodium 138.9 Potassium 4.2 Chloride 102 Carbon Dioxide 27 Anion Gap 10 BUN 41 H Creatinine 1.77 H Est GFR ( Amer) 46 L Glucose 105 Calcium 8.3 L Total Bilirubin AST Alkaline Phosphatase Total Protein Albumin Urine Color Urine Appearance Urine pH Ur Specific [place] Urine Protein Urine Glucose (UA) Urine Ketones Urine Blood Urine Nitrite Ur Leukocyte Esterase Urine WBC (Auto) Urine RBC (Auto) 03/31/19 03/31/19 15:07 18:15 Troponin I < 0.012 < 0.012 Impressions: Chest X-Ray 03/31/19 00:00 IMPRESSION: NO ACUTE RADIOGRAPHIC FINDING IN THE CHEST. Abdomen/Pelvis CT 03/31/19 15:25 IMPRESSION: Post Alycia fundoplication with gastroesophageal reflux and distal esophageal wall thickening worrisome for esophagitis. Nonspecific mild distention of fluid-filled mid and distal small bowel loops without clear transition point. Colon decompressed. Post left nephrectomy. Indeterminate right 1 cm lower pole renal lesion, complex 2.5 cm cyst right mid-pole kidney. Consider ultrasound or MR for further characterization, given elevated creatinine KUB X-Ray 04/01/19 00:00 IMPRESSION: NG tube tip in the upper stomach. Assessment & Plan - Diagnosis (1) Small bowel obstruction Is this a current diagnosis for this admission?: Yes - Time Time Spent with patient: Less than 15 minutes - Plan Summary Plan Summary: This is a 73-year-old male with a small bowel obstruction. The patient reports passing flatus today. His NG tube is minimally productive. Repeat x-rays tomorrow. Order Chloraseptic [place] for patient's comfort. Continue with conservative management for the next 24 to 48 hours. Reevaluation of his progress will be made at that time. If the patient has no improvement in symptoms, he may require surgical intervention.
--- NOTE | 2019-04-01 15:27 | PDOC PROGRESS REPORT ---
Subjective Progress Note for:: 04/01/19 Subjective:: This is a 73-year-old male with a past medical history of hypertension, diabetes, CKD 3, numerous abdominal surgeries and left nephrectomy for malignancy, status post Alycia fundoplication who was admitted for partial SBO. Hospital service was consulted for comanagement of his hypertension and diabetes. No acute event overnight. On encounter, he appears comfortable. He says he feels better today and has less abdominal pain. Blood pressures are close to goal in the 140 systolic. Blood sugars are well controlled. Renal function is at baseline. Reason For Visit: PARTIAL SMALL BOWEL OBSTRUCTION Physical Exam Vital Signs: Temp Pulse Resp BP Pulse Ox 98.1 F 81 14 141/49 H 95 04/01/19 10:35 04/01/19 10:35 04/01/19 10:35 04/01/19 10:35 04/01/19 10:35 Intake & Output 03/31/19 04/01/19 04/02/19 06:59 06:59 06:59 Intake Total 0 1000 Output Total 500 875 Balance -500 125 Weight 235 lb General appearance: PRESENT: no acute distress, well-developed, well-nourished Head exam: PRESENT: atraumatic, normocephalic Eye exam: PRESENT: conjunctiva pink, EOMI, PERRLA. ABSENT: scleral icterus Ear exam: PRESENT: normal external ear exam Mouth exam: PRESENT: moist, tongue midline Neck exam: ABSENT: carotid bruit, JVD, lymphadenopathy, thyromegaly Respiratory exam: PRESENT: clear to auscultation kobe. ABSENT: rales, rhonchi, wheezes Cardiovascular exam: PRESENT: RRR. ABSENT: diastolic murmur, rubs, systolic murmur Pulses: PRESENT: normal dorsalis pedis pul GI/Abdominal exam: PRESENT: normal bowel sounds, soft. ABSENT: distended, guarding, mass, organolmegaly, rebound, tenderness Rectal exam: PRESENT: deferred Extremities exam: PRESENT: full ROM. ABSENT: calf tenderness, clubbing, pedal edema Neurological exam: PRESENT: alert, awake, oriented to person, oriented to place, oriented to time, oriented to situation, CN II-XII grossly intact. ABSENT: motor sensory deficit Results Laboratory Results: 04/01/19 06:50 04/01/19 06:50 03/31/19 03/31/19 03/31/19 15:07 15:07 15:24 WBC 14.8 H RBC 4.50 Hgb 13.5 Hct 38.9 MCV 87 MCH 29.9 MCHC 34.6 RDW 13.5 Plt Count 342 Seg Neutrophils % 77.0 Sodium 138.4 Potassium 4.3 Chloride 101 Carbon Dioxide 24 Anion Gap 13 BUN 42 H Creatinine 1.93 H Est GFR ( Amer) 42 L Glucose 151 H Calcium 9.2 Total Bilirubin 0.6 AST 19 Alkaline Phosphatase 104 Total Protein 7.4 Albumin 4.1 Urine Color YELLOW Urine Appearance SLIGHTLY-CLOUDY Urine pH 5.0 Ur Specific [place] 1.018 Urine Protein NEGATIVE Urine Glucose (UA) NEGATIVE Urine Ketones NEGATIVE Urine Blood NEGATIVE Urine Nitrite NEGATIVE Ur Leukocyte Esterase NEGATIVE Urine WBC (Auto) 3 Urine RBC (Auto) 0 04/01/19 04/01/19 06:50 06:50 WBC 7.8 RBC 4.34 L Hgb 13.0 L Hct 37.4 L MCV 86 MCH 30.0 MCHC 34.8 RDW 13.5 Plt Count 249 Seg Neutrophils % Sodium 138.9 Potassium 4.2 Chloride 102 Carbon Dioxide 27 Anion Gap 10 BUN 41 H Creatinine 1.77 H Est GFR ( Amer) 46 L Glucose 105 Calcium 8.3 L Total Bilirubin AST Alkaline Phosphatase Total Protein Albumin Urine Color Urine Appearance Urine pH Ur Specific [place] Urine Protein Urine Glucose (UA) Urine Ketones Urine Blood Urine Nitrite Ur Leukocyte Esterase Urine WBC (Auto) Urine RBC (Auto) 03/31/19 03/31/19 15:07 18:15 Troponin I < 0.012 < 0.012 Impressions: Chest X-Ray 03/31/19 00:00 IMPRESSION: NO ACUTE RADIOGRAPHIC FINDING IN THE CHEST. Abdomen/Pelvis CT 03/31/19 15:25 IMPRESSION: Post Alycia fundoplication with gastroesophageal reflux and distal esophageal wall thickening worrisome for esophagitis. Nonspecific mild distention of fluid-filled mid and distal small bowel loops without clear transition point. Colon decompressed. Post left nephrectomy. Indeterminate right 1 cm lower pole renal lesion, complex 2.5 cm cyst right mid-pole kidney. Consider ultrasound or MR for further characterization, given elevated creatinine KUB X-Ray 04/01/19 00:00 IMPRESSION: NG tube tip in the upper stomach. Assessment and Plan - Diagnosis (1) Partial small bowel obstruction Is this a current diagnosis for this admission?: Yes Plan: Continue NG tube. Surgery managing. (2) Diabetes Is this a current diagnosis for this admission?: Yes Plan: Blood sugars controlled. Continue sliding scale for now. (3) Hypertension Is this a current diagnosis for this admission?: Yes Plan: Blood pressures close to goal running in the 142 systolic. Continue hydralazine PRN with parameters. Will resume oral antihypertensive once diet is resumed. (4) Chronic kidney disease (CKD) stage G3a/A2, moderately decreased glomerular filtration rate (GFR) between 45-59 mL/min/1.73 square meter and albuminuria creatinine ratio between 30-299 mg/g Is this a current diagnosis for this admission?: Yes Plan: Renal functions at baseline. Avoid nephrotoxic agents. - Time Time Spent with patient: 25-34 minutes
--- NOTE | 2019-04-01 15:37 | RADIOLOGY REPORT (SQ) ---
EXAM DESCRIPTION: ABDOMEN 2 VIEWS COMPLETED DATE/TIME: 04/01/2019 3:18 pm REASON FOR STUDY: f/u sbo COMPARISON: None. NUMBER OF VIEWS: 03/31/2018 TECHNIQUE: Supine and erect/decubitus radiographic images of the abdomen acquired. LIMITATIONS: None. FINDINGS: FREE AIR: None. No abnormal gas collections. LUNG BASES: Clear. BOWEL GAS PATTERN: Persistent dilated small bowel loops measuring up to 4.4 cm within the right centr al abdomen. There scattered associated gas fluid levels. Scattered colonic gas noted. CALCIFICATIONS: No suspicious calcifications. SOFT TISSUES: No gross mass or suggestion of organomegaly. HARDWARE: Nasoenteric tube tip overlies proximal gastric body with side port just distal to the GE ju nction. Surgical clips overlie right abdomen and midline abdomen. Bilateral iliac venous stents pre sent. BONES: No acute fracture. No worrisome bone lesions. OTHER: No other significant finding. IMPRESSION: Persistent dilated small bowel loops of the central abdomen measuring up to 4.4 cm. Nasoenteric tube side port just distal to the GE junction. TECHNICAL DOCUMENTATION: JOB ID: [id number] [employer]- All Rights Reserved Reading location - IP/workstation name: [email or web address]
[2019-04-02] MEDS: INSULIN REG, HUMAN 100 UNIT/ML 3 ML VIAL (PYX) SUBCUT SCH ×3 (02:27→12:16)
[2019-04-02 05:22] LABS: ANION GAP 8 (5-19); BLOOD UREA NITROGEN 26 mg/dL (7-20); CALCIUM 8.2 mg/dL (8.4-10.2); CARBON DIOXIDE 26 mmol/L (22-30); CHLORIDE 105 mmol/L (98-107); GLUCOSE 91 mg/dL (75-110); POTASSIUM 4.3 mmol/L (3.6-5.0)
[2019-04-02] MEDS: MORPHINE SULFATE 10 MG/ML INJ IV PRN (06:19)
--- NOTE | 2019-04-02 07:11 | RADIOLOGY REPORT (SQ) ---
EXAM DESCRIPTION: XR ABDOMEN 1 VIEW (KUB) COMPLETED DATE/TME: 04/02/2019 00:00 CLINICAL HISTORY: 73 years, Male, chest pain/ checking ng placement COMPARISON: 04/01/2019 NUMBER OF VIEWS: Two TECHNIQUE: Upright images of the abdomen LIMITATIONS: None. FINDINGS: There is no intraperitoneal free air. The nasogastric tube is in satisfactory position. There are dilated loops of small bowel which measure up to 3.9 cm, slightly decreased in size compared to the prior of 4.4 cm. Surgical clips are noted along the left side the abdomen and along the right lower quadrant. Bilateral iliac stents are noted. The bones are unchanged. IMPRESSION: Satisfactory position of the nasogastric tube. Persistent dilatation of the small bowel, slightly improved since the prior. copyright 2010 [employer]- All Rights Reserved
[2019-04-02 07:24] LABS: ABSOLUTE BASOPHILS # (AUTO) 0.1 10^3/uL (0.0-0.2); ABSOLUTE EOSINOPHILS # (AUTO) 0.2 10^3/uL (0.0-0.6); ABSOLUTE MONOCYTES (AUTO) 1.5 10^3/uL (0.1-1.4); ABSOLUTE NEUT (AUTO) 7.8 10^3/uL (1.7-8.2); BASOPHILS % (AUTO) 0.5 % (0-2); EOSINOPHILS % (AUTO) 2.1 % (0-6); HEMATOCRIT 38.6 % (37.9-51.0); HEMOGLOBIN 13.2 g/dL (13.5-17.0); LYMPHOCYTES % (AUTO) 9.8 % (13-45); MEAN CORPUSCULAR HEMOGLOBIN 29.4 pg (27.0-33.4); MEAN CORPUSCULAR HGB CONC 34.1 g/dL (32.0-36.0); MEAN CORPUSCULAR VOLUME 86 fl (80-97); MONOCYTES % (AUTO) 13.7 % (3-13); PLATELET COUNT 261 10^3/uL (150-450); RED BLOOD COUNT 4.47 10^6/uL (4.35-5.55); RED CELL DISTRIBUTION WIDTH 13.6 % (11.5-14.0); SEGMENTED NEUTROPHILS % (AUTO) 73.9 % (42-78); TOTAL CELLS COUNTED % (AUTO) 100 %; WHITE BLOOD COUNT 10.6 10^3/uL (4.0-10.5)
[2019-04-02] MEDS: ENOXAPARIN SODIUM INJ 30 MG/0.3 ML DISP.SYRIN SUBCUT SCH (09:13)
[2019-04-02] MEDS: FAMOTIDINE INJ/PF 20 MG/2 ML SDV IV SCH ×2 (09:13→21:17)
--- NOTE | 2019-04-02 09:55 | PDOC PROGRESS REPORT ---
Subjective Progress Note for:: 04/02/19 Subjective:: Still having some abdominal discomfort but much less than at admission. Passing a little bit of gas. Still feels bloated. But less so than admission. Reason For Visit: PARTIAL SMALL BOWEL OBSTRUCTION Physical Exam Vital Signs: Temp Pulse Resp BP Pulse Ox 98.3 F 87 18 142/42 H 95 04/02/19 00:02 04/02/19 00:02 04/01/19 20:06 04/02/19 00:02 04/02/19 00:02 Intake & Output 04/01/19 04/02/19 04/03/19 06:59 06:59 06:59 Intake Total 0 2000 Output Total 500 1775 Balance -500 225 Weight 106.594 kg 102.7 kg General appearance: PRESENT: no acute distress, cooperative Respiratory exam: PRESENT: clear to auscultation kobe Cardiovascular exam: PRESENT: RRR GI/Abdominal exam: PRESENT: other - Soft, mildly distended, mild diffuse ab dominal tenderness without peritoneal signs. Diminished bowel sounds. NG output is bile tinged. Results Laboratory Results: 04/02/19 07:07 04/02/19 04:32 04/02/19 04/02/19 04:32 07:07 WBC 10.6 H RBC 4.47 Hgb 13.2 L Hct 38.6 MCV 86 MCH 29.4 MCHC 34.1 RDW 13.6 Plt Count 261 Seg Neutrophils % 73.9 Sodium 138.8 Potassium 4.3 Chloride 105 Carbon Dioxide 26 Anion Gap 8 BUN 26 H Creatinine 1.23 Est GFR ( Amer) > 60 Glucose 91 Calcium 8.2 L 03/31/19 03/31/19 15:07 18:15 Troponin I < 0.012 < 0.012 Impressions: Chest X-Ray 03/31/19 00:00 IMPRESSION: NO ACUTE RADIOGRAPHIC FINDING IN THE CHEST. Abdomen/Pelvis CT 03/31/19 15:25 IMPRESSION: Post Alycia fundoplication with gastroesophageal reflux and distal esophageal wall thickening worrisome for esophagitis. Nonspecific mild distention of fluid-filled mid and distal small bowel loops without clear transition point. Colon decompressed. Post left nephrectomy. Indeterminate right 1 cm lower pole renal lesion, comp klever 2.5 cm cyst right mid-pole kidney. Consider ultrasound or MR for further characterization, given elevated creatinine Abdomen X-Ray 04/01/19 07:00 IMPRESSION: Persistent dilated small bowel loops of the central abdomen measuring up to 4.4 cm. Nasoenteric tube side port just distal to the GE junction. KUB X-Ray 04/02/19 00:00 IMPRESSION: Satisfactory position of the nasogastric tube. Persistent dilatation of the small bowel, slightly improved since the prior. copyright 2011 [employer]- All Rights Reserved Assessment & Plan - Diagnosis (1) Partial small bowel obstruction Is this a current diagnosis for this admission?: Yes Plan: Patient appears improved but still having some symptoms. Will obtain small bowel follow series today. - Time Time Spent with patient: Less than 15 minutes
--- NOTE | 2019-04-02 13:23 | RADIOLOGY REPORT (SQ) ---
EXAM DESCRIPTION: SMALL BOWEL SERIES COMPLETED DATE/TIME: 04/02/2019 12:46 pm REASON FOR STUDY: Follow-up small bowel obstruction COMPARISON: CT abdomen pelvis 03/31/2019 Abdominal films 03/31/2019, 04/01/2019, 04/02/2019 FLUOROSCOPY TIME: No fluoroscopy 6 KUB images saved to PACS. LIMITATIONS: None. PROCEDURE: Initial automation sales manager image of abdomen acquired, followed by administration of half strength Lb rografin oral contrast. Serial radiographic images acquired. Fluoroscopic images recorded of the te rminal ileum and other indicated areas. All images stored on PACS. 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 Right lower quadrant clips post appendectomy . Bilateral iliac vein stents. Surgical clips left upper quadrant post nephrectomy. STOMACH: No significant reflux. Normal distention without abnormality. DUODENUM: Normal mucosal pattern with adequate distention. No displacement or obstruction. JEJUNUM: Normal mucosal pattern. No dilatation, segmentation, strictures or masses. ILEUM: Normal mucosal pattern. No dilatation, segmentation, strictures or masses. TERMINAL ILEUM AND ILEO-CECAL VALVE: Normal mucosal pattern without "cobble-stoning" or stricture. N ormal compression. PROXIMAL COLON: Incompletely imaged. No abnormality. OTHER: No other significant finding. IMPRESSION: NORMAL SMALL BOWEL EXAM. COMMENT: Quality ID [id number]: Final reports for procedures using fluoroscopy that document radiation exp osure indices, or exposure time and number of fluorographic images (if radiation exposure indices are not available) TECHNICAL DOCUMENTATION: JOB ID: [id number] [employer]- All Rights Reserved Reading location - IP/workstation name: [email or web address]
[2019-04-02] MEDS: NORMAL SALINE 1000 ML 1,000 ML IV PRN (13:31)
--- NOTE | 2019-04-02 15:29 | PDOC PROGRESS REPORT ---
Subjective Progress Note for:: 04/02/19 Subjective:: This is a 73-year-old male with a past medical history of hypertension, diabetes, CKD 3, numerous abdominal surgeries and left nephrectomy for malignancy, status post Alycia fundoplication who was admitted for partial SBO. Hospital service was consulted for comanagement of his hypertension and diabetes. 04/01: No acute event overnight. On encounter, he appears comfortable. He says he feels better today and has less abdominal pain. Blood pressures are close to goal in the 140 systolic. Blood sugars are well controlled. Renal function is at baseline. 04/02: No acute event overnight. He says his abdominal pain continued to improve. Blood pressure is slightly up in the 140-1 50 systolic. Blood sugars remain well controlled. Continue hydralazine prn for now as patient is still n.p.o. Reason For Visit: PARTIAL SMALL BOWEL OBSTRUCTION Physical Exam Vital Signs: Temp Pulse Resp BP Pulse Ox 98.3 F 79 20 157/53 H 90 L 04/02/19 12:11 04/02/19 12:11 04/02/19 12:11 04/02/19 12:11 04/02/19 12:11 Intake & Output 04/01/19 04/02/19 04/03/19 06:59 06:59 06:59 Intake Total 0 2000 1000 Output Total 500 1775 400 Balance -500 225 600 Weight 235 lb 226 lb 6.636 oz General appearance: PRESENT: no acute distress, well-developed, well-nourished Head exam: PRESENT: atraumatic, normocephalic Eye exam: PRESENT: conjunctiva pink, EOMI, PERRLA. ABSENT: scleral icterus Ear exam: PRESENT: normal external ear exam Mouth exam: PRESENT: moist, tongue midline Neck exam: ABSENT: carotid bruit, JVD, lymphadenopathy, thyromegaly Respiratory exam: PRESENT: clear to auscultation kobe. ABSENT: rales, rhonchi, wheezes Cardiovascular exam: PRESENT: RRR. ABSENT: diastolic murmur, rubs, systolic murmur Pulses: PRESENT: normal dorsalis pedis pul GI/Abdominal exam: PRESENT: normal bowel sounds, soft. ABSENT: distended, guarding, mass, organolmegaly, rebound, tenderness Rectal exam: PRESENT: deferred Neurological exam: PRESENT: alert, awake, oriented to person, oriented to place, oriented to time, oriented to situation, CN II-XII grossly intact. ABSENT: motor sensory deficit Results Laboratory Results: 04/02/19 07:07 04/02/19 04:32 04/02/19 04/02/19 04:32 07:07 WBC 10.6 H RBC 4.47 Hgb 13.2 L Hct 38.6 MCV 86 MCH 29.4 MCHC 34.1 RDW 13.6 Plt Count 261 Seg Neutrophils % 73.9 Sodium 138.8 Potassium 4.3 Chloride 105 Carbon Dioxide 26 Anion Gap 8 BUN 26 H Creatinine 1.23 Est GFR ( Amer) > 60 Glucose 91 Calcium 8.2 L 03/31/19 03/31/19 15:07 18:15 Troponin I < 0.012 < 0.012 Impressions: Chest X-Ray 03/31/19 00:00 IMPRESSION: NO ACUTE RADIOGRAPHIC FINDING IN THE CHEST. Abdomen/Pelvis CT 03/31/19 15:25 IMPRESSION: Post Alycia fundoplication with gastroesophageal reflux and distal esophageal wall thickening worrisome for esophagitis. Nonspecific mild distention of fluid-filled mid and distal small bowel loops without clear transition point. Colon decompressed. Post left nephrectomy. Indeterminate right 1 cm lower pole renal lesion, complex 2.5 cm cyst right mid-pole kidney. Consider ultrasound or MR for further characterization, given elevated creatinine Abdomen X-Ray 04/01/19 07:00 IMPRESSION: Persistent dilated small bowel loops of the central abdomen measuring up to 4.4 cm. Nasoenteric tube side port just distal to the GE junction. KUB X-Ray 04/02/19 00:00 IMPRESSION: Satisfactory position of the nasogastric tube. Persistent dilatation of the small bowel, slightly improved since the prior. copyright 2010 [employer]- All Rights Reserved Small Bowel X-Ray 04/02/19 00:00 IMPRESSION: NORMAL SMALL BOWEL EXAM. Assessment and Plan - Diagnosis (1) Partial small bowel obstruction Is this a current diagnosis for this admission?: Yes Plan: Improving. Continue NG tube. Surgery managing. (2) Diabetes Is this a current diagnosis for this admission?: Yes Plan: Blood sugars controlled. Continue sliding scale for now. (3) Hypertension Is this a current diagnosis for this admission?: Yes Plan: 04/01: Blood pressures close to goal running in the 142 systolic. Continue hydralazine PRN with parameters. Will resume oral antihypertensive once diet is resumed. 04/02: Continue hydralazine prn for now as patient is still n.p.o. (4) Chronic kidney disease (CKD) stage G3a/A2, moderately decreased glomerular filtration rate (GFR) between 45-59 mL/min/1.73 square meter and albuminuria creatinine ratio between 30-299 mg/g Is this a current diagnosis for this admission?: Yes Plan: Renal functions at baseline. Avoid nephrotoxic agents. 04/02: Creatinine actually has improved much better to 1.2.
--- NOTE | 2019-04-02 15:56 | PDOC PROGRESS REPORT ---
Subjective Progress Note for:: 04/02/19 Subjective:: Doing very well. Still has some abdominal discomfort but markedly improved from admission. Having bowel movements. Hungry. Reason For Visit: PARTIAL SMALL BOWEL OBSTRUCTION Physical Exam Vital Signs: Temp Pulse Resp BP Pulse Ox 98.3 F 79 20 157/53 H 90 L 04/02/19 12:11 04/02/19 12:11 04/02/19 12:11 04/02/19 12:11 04/02/19 12:11 Intake & Output 04/01/19 04/02/19 04/03/19 06:59 06:59 06:59 Intake Total 0 2000 1000 Output Total 500 1775 400 Balance -500 225 600 Weight 106.594 kg 102.7 kg General appearance: PRESENT: no acute distress, cooperative GI/Abdominal exam: PRESENT: other - Soft, protuberant, very mild diffuse abdominal tenderness without peritoneal signs. Results Laboratory Results: 04/02/19 07:07 04/02/19 04:32 04/02/19 04/02/19 04:32 07:07 WBC 10.6 H RBC 4.47 Hgb 13.2 L Hct 38.6 MCV 86 MCH 29.4 MCHC 34.1 RDW 13.6 Plt Count 261 Seg Neutrophils % 73.9 Sodium 138.8 Potassium 4.3 Chloride 105 Carbon Dioxide 26 Anion Gap 8 BUN 26 H Creatinine 1.23 Est GFR ( Amer) > 60 Glucose 91 Calcium 8.2 L 03/31/19 03/31/19 15:07 18:15 Troponin I < 0.012 < 0.012 Impressions: Chest X-Ray 03/31/19 00:00 IMPRESSION: NO ACUTE RADIOGRAPHIC FINDING IN THE CHEST. Abdomen/Pelvis CT 03/31/19 15:25 IMPRESSION: Post Alycia fundoplication with gastroesophageal reflux and distal esophageal wall thickening worrisome for esophagitis. Nonspecific mild distention of fluid-filled mid and distal small bowel loops without clear transition point. Colon decompressed. Post left nephrectomy. Indeterminate right 1 cm lower pole renal lesion, complex 2.5 cm cyst right mid-pole kidney. Consider ultrasound or MR for further characterization, given elevated creatinine Abdomen X-Ray 04/01/19 07:00 IMPRESSION: Persistent dilated small bowel loops of the central abdomen measuring up to 4.4 cm. Nasoenteric tube side port just distal to the GE junction. KUB X-Ray 04/02/19 00:00 IMPRESSION: Satisfactory position of the nasogastric tube. Persistent dilatation of the small bowel, slightly improved since the prior. copyright 2011 [employer]- All Rights Reserved Small Bowel X-Ray 04/02/19 00:00 IMPRESSION: NORMAL SMALL BOWEL EXAM. Assessment & Plan - Diagnosis (1) Partial small bowel obstruction Is this a current diagnosis for this admission?: Yes Plan: Small bowel follow series demonstrates no evidence of obstruction. Patient is having good bowel movements now. Looks markedly improved. We will try clear liquids. Will advance to a diabetic diet as tolerated. Probable discharge in the morning. - Time Time Spent with patient: Less than 15 minutes
[2019-04-02] MEDS ORDERED: INSULIN REG, HUMAN 100 UNIT/ML 3 ML VIAL (PYX) SUBCUT SCH (16:00)
[2019-04-02] MEDS: AMLODIPINE BESYLATE 10 MG TABLET PO SCH (17:11)
[2019-04-02] MEDS: INSULIN LISPRO 100 UNIT/ML 3 ML VIAL SUBCUT SCH (21:15)
[2019-04-02] MEDS: GABAPENTIN 300 MG CAPSULE PO SCH (21:16)
[2019-04-02] MEDS: LISINOPRIL 10 MG TABLET PO SCH (21:16)
[2019-04-02] MEDS: BUPROPION HCL 75 MG TABLET PO SCH (21:16)
[2019-04-02] MEDS: INSULIN GLARGINE,HUM.REC.ANLOG 1,000 UNIT/10 ML VIAL SUBCUT SCH (21:53)
[2019-04-02] MEDS ORDERED: INSULIN GLARGINE,HUM.REC.ANLOG 1,000 UNIT/10 ML VIAL SUBCUT SCH (22:00)
[2019-04-02] MEDS ORDERED: ATORVASTATIN CALCIUM 20 MG TABLET PO SCH (22:00)
[2019-04-02] MEDS ORDERED: (PENDING PHARMACY ID) (Lisinopril [Zestril] 20 MG) PO SCH (22:00)
[2019-04-03] MEDS: GABAPENTIN 300 MG CAPSULE PO SCH (05:34)
[2019-04-03] MEDS: INSULIN LISPRO 100 UNIT/ML 3 ML VIAL SUBCUT SCH (07:41)
[2019-04-03] MEDS ORDERED: CLOPIDOGREL BISULFATE 75 MG TABLET PO SCH (08:00)
[2019-04-03] MEDS ORDERED: ASPIRIN 81 MG TABLET, ENT COATED PO SCH (08:00)
[2019-04-03] MEDS ORDERED: (PENDING PHARMACY ID) (Ubidecarenone/Vit E Acet [Co Q-10 100 Mg Softgel] 1 CAP) PO SCH (08:00)
--- NOTE | 2019-04-03 08:26 | PDOC DISCHARGE SUMMARY ---
General - Admit/Disc Date/PCP Admission Date/Primary Care Provider: 03/31/19 17:13 Discharge Date: 04/03/19 - Discharge Diagnosis Final Diagnosis: Small bowel obstruction - Assessment Summary: Patient was admitted on 03/31/2019 with increased abdominal distention nausea and vomiting. He was noted to have a small bowel obstruction on initial work-up in the emergency room. He was admitted for IV hydration sedation On 04/02/2019 underwent a upper GI with small bowel follow-through which showed filling of the colon without further evidence of small bowel obstruction. He was then started on a full liquid diet which he tolerated well and he continued to pass diarrhea and flatus. This morning he feels well his abdomen is soft nontender he is passing gas and stool and feels ready for discharge home. He will follow-up with his primary MD. Final diagnosis small bowel obstruction resolved. - Additional Information Resuscitation Status: Full Code Discharge Diet: As Tolerated Discharge Activity: Activity As Tolerated - Patient can follow-up with his primary MD Home Medications: Amlodipine Besylate [Norvasc 10 mg Tablet] 10 mg PO DAILY 03/31/19 Aspirin [Adult Low Dose Aspirin EC] 81 mg PO QAM 03/31/19 Atorvastatin Calcium [Lipitor 20 mg Tablet] 20 mg PO QHS 03/31/19 Bupropion HCl [Bupropion HCl Sr] 150 mg PO DAILY 03/31/19 Clopidogrel Bisulfate [Plavix 75 mg Tablet] 75 mg PO QAM 03/31/19 Gabapentin [Neurontin 300 mg Capsule] 300 mg PO Q8 03/31/19 Hydrochlorothiazide [Hydrodiuril 25 mg Tablet] 25 mg PO DAILY 03/31/19 Insulin Glargine,Hum.rec.anlog [Lantus Insulin 100 Unit/1 ml 10 ml] 20 units SQ Q12 03/31/19 Isosorbide Mononitrate [Imdur 30 mg Tablet.er] 30 mg PO DAILY 03/31/19 Lisinopril [Zestril] 20 mg PO Q12 03/31/19 Ubidecarenone/Vit E Acet [Co Q-10 100 mg Softgel] 1 cap PO QAM 03/31/19 History of Present Illiness History of Present Illness: BONI MANCUSO is a 73 year old male Physical Exam Vital Signs: Temp Pulse Resp BP Pulse Ox 98.1 F 75 14 132/93 H 96 04/02/19 23:06 04/02/19 23:06 04/02/19 23:06 04/02/19 23:06 04/02/19 23:06 Intake & Output 04/02/19 04/03/19 04/04/19 06:59 06:59 06:59 Intake Total 1999 1849 Output Total 177 1150 Balance 225 700 Weight 102.7 kg 101.6 kg Results Laboratory Results: WBC 10.6 10^3/uL (4.0-10.5) H 04/02/19 07:07 RBC 4.47 10^6/uL (4.35-5.55) 04/02/19 07:07 Hgb 13.2 g/dL (13.5-17.0) L 04/02/19 07:07 Hct 38.6 % (37.9-51.0) 04/02/19 07:07 MCV 86 fl (80-97) 04/02/19 07:07 MCH 29.4 pg (27.0-33.4) 04/02/19 07:07 MCHC 34.1 g/dL (32.0-36.0) 04/02/19 07:07 RDW 13.6 % (11.5-14.0) 04/02/19 07:07 Plt Count 261 10^3/uL (150-450) 04/02/19 07:07 Lymph % (Auto) 9.8 % (13-45) L 04/02/19 07:07 [place] % (Auto) 13.7 % (3-13) H 04/02/19 07:07 Eos % (Auto) 2.1 % (0-6) 04/02/19 07:07 Baso % (Auto) 0.5 % (0-2) 04/02/19 07:07 Absolute Neuts (auto) 7.8 10^3/uL (1.7-8.2) 04/02/19 07:07 Absolute Lymphs (auto) 1.0 10^3/uL (0.5-4.7) 04/02/19 07:07 Absolute Monos (auto) 1.5 10^3/uL (0.1-1.4) H 04/02/19 07:07 Absolute Eos (auto) 0.2 10^3/uL (0.0-0.6) 04/02/19 07:07 Absolute Basos (auto) 0.1 10^3/uL (0.0-0.2) 04/02/19 07:07 Seg Neutrophils % 73.9 % (42-78) 04/02/19 07:07 Sodium 138.8 mmol/L (137-145) 04/02/19 04:32 Potassium 4.3 mmol/L (3.6-5.0) 04/02/19 04:32 Chloride 105 mmol/L (98-107) 04/02/19 04:32 Carbon Dioxide 26 mmol/L (22-30) 04/02/19 04:32 Anion Gap 8 (5-19) 04/02/19 04:32 BUN 26 mg/dL (7-20) H 04/02/19 04:32 Creatinine 1.23 mg/dL (0.52-1.25) 04/02/19 04:32 Est GFR ( Amer) > 60 (>60) 04/02/19 04:32 Est GFR (MDRD) Non-Af 58 (>60) L 04/02/19 04:32 Glucose 91 mg/dL (75-110) 04/02/19 04:32 POC Glucose 133 mg/dL (70-110) H 04/03/19 07:04 Calcium 8.2 mg/dL (8.4-10.2) L 04/02/19 04:32 Total Bilirubin 0.6 mg/dL (0.2-1.3) 03/31/19 15:07 Direct Bilirubin 0.3 mg/dL (0.0-0.4) 03/31/19 15:07 Neonat Total Bilirubin Not Reportable 03/31/19 15:07 Neonat Direct Bilirubin Not Reportable 03/31/19 15:07 Neonat Indirect Bili Not Reportable 03/31/19 15:07 AST 19 U/L (17-59) 03/31/19 15:07 ALT 14 U/L (<50) 03/31/19 15:07 Alkaline Phosphatase 104 U/L (38-126) 03/31/19 15:07 Troponin I < 0.012 ng/mL 03/31/19 18:15 Total Protein 7.4 g/dL (6.3-8.2) 03/31/19 15:07 Albumin 4.1 g/dL (3.5-5.0) 03/31/19 15:07 Urine Color YELLOW 03/31/19 15:24 Urine Appearance SLIGHTLY-CLOUDY 03/31/19 15:24 Urine pH 5.0 (5.0-9.0) 03/31/19 15:24 Ur Specific [place] 1.018 03/31/19 15:24 Urine Protein NEGATIVE mg/dL (NEGATIVE) 03/31/19 15:24 Urine Glucose (UA) NEGATIVE mg/dL (NEGATIVE) 03/31/19 15:24 Urine Ketones NEGATIVE mg/dL (NEGATIVE) 03/31/19 15:24 Urine Blood NEGATIVE (NEGATIVE) 03/31/19 15:24 Urine Nitrite NEGATIVE (NEGATIVE) 03/31/19 15:24 Urine Bilirubin NEGATIVE (NEGATIVE) 03/31/19 15:24 Urine Urobilinogen NEGATIVE mg/dL (<2.0) 03/31/19 15:24 Ur Leukocyte Esterase NEGATIVE (NEGATIVE) 03/31/19 15:24 Urine WBC (Auto) 3 /HPF 03/31/19 15:24 Urine RBC (Auto) 0 /HPF 03/31/19 15:24 Squamous Epi Cells Auto <1 /HPF 03/31/19 15:24 Urine Mucus (Auto) RARE /LPF 03/31/19 15:24 Urine Ascorbic Acid NEGATIVE (NEGATIVE) 03/31/19 15:24 03/31/19 03/31/19 15:07 18:15 Troponin I < 0.012 < 0.012 Impressions: Chest X-Ray 03/31/19 00:00 IMPRESSION: NO ACUTE RADIOGRAPHIC FINDING IN THE CHEST. Abdomen/Pelvis CT 03/31/19 15:25 IMPRESSION: Post Alycia fundoplication with gastroesophageal reflux and distal esophageal wall thickening worrisome for esophagitis. Nonspecific mild distention of fluid-filled mid and distal small bowel loops without clear transition point. Colon decompressed. Post left nephrectomy. Indeterminate right 1 cm lower pole renal lesion, complex 2.5 cm cyst right mid-pole kidney. Consider ultrasound or MR for further characterization, given elevated creatinine KUB X-Ray 03/31/19 19:11 IMPRESSION: NG tube tip in the stomach. KUB X-Ray 04/01/19 00:00 IMPRESSION: NG tube tip in the upper stomach. Abdomen X-Ray 04/01/19 07:00 IMPRESSION: Persistent dilated small bowel loops of the central abdomen veronique suring up to 4.4 cm. Nasoenteric tube side port just distal to the GE junction. KUB X-Ray 04/02/19 00:00 IMPRESSION: Satisfactory position of the nasogastric tube. Persistent dilatation of the small bowel, slightly improved since the prior. copyright 2010 [employer]- All Rights Reserved Small Bowel X-Ray 04/02/19 00:00 IMPRESSION: NORMAL SMALL BOWEL EXAM.
[2019-04-03 08:39] VITALS: BP 139/58
[2019-04-03] MEDS: AMLODIPINE BESYLATE 10 MG TABLET PO SCH (09:10)
[2019-04-03] MEDS: FAMOTIDINE INJ/PF 20 MG/2 ML SDV IV SCH (09:10)
[2019-04-03] MEDS: LISINOPRIL 10 MG TABLET PO SCH (09:10)
[2019-04-03] MEDS: INSULIN GLARGINE,HUM.REC.ANLOG 1,000 UNIT/10 ML VIAL SUBCUT SCH (09:11)
[2019-04-03] MEDS: BUPROPION HCL 75 MG TABLET PO SCH (09:12)
[2019-04-03] MEDS: ENOXAPARIN SODIUM INJ 30 MG/0.3 ML DISP.SYRIN SUBCUT SCH (09:15)
[2019-04-03] MEDS ORDERED: ISOSORBIDE MONONITRATE 30 MG TAB.ER.24H PO SCH (10:00)
[2019-04-03] MEDS ORDERED: HYDROCHLOROTHIAZIDE 25 MG TABLET PO SCH (10:00)
--- NOTE | 2019-04-03 16:43 | Progress Note ---
Provider Note Provider Note: No acute event overnight. Patient reports his abdominal pain has resolved. Denies any other acute complaints. He is being discharged by surgery. Diet was resumed. Blood pressures and sugars remain well controlled. Recommend resuming patient's home regimen for his diabetes and hypertension and close follow-up w ith PCP.
== END 2019-04-03 11:59 | disposition home or self-care (01) | DRG 390 ==
LOC: ER 14:59 → EH 17:13 → 4W 04-01 00:20
PROVIDERS: ADMIT Surgery; ATTEND Surgery
DX: K56.600 Partial intestinal obstruction, unspecified as to cause (principal); I12.9 Hypertensive chronic kidney disease with stage 1 through stage 4 chronic kidney disease, or unspecified chronic kidney disease; E11.22 Type 2 diabetes mellitus with diabetic chronic kidney disease; N18.3 Chronic kidney disease, stage 3 (moderate); I25.10 Atherosclerotic heart disease of native coronary artery without angina pectoris; F32.9 Major depressive disorder, single episode, unspecified; E78.5 Hyperlipidemia, unspecified; Z79.4 Long term (current) use of insulin; Z79.899 Other long term (current) drug therapy; Z87.891 Personal history of nicotine dependence; Z83.3 Family history of diabetes mellitus; Z82.49 Family history of ischemic heart disease and other diseases of the circulatory system; Z95.5 Presence of coronary angioplasty implant and graft; Z79.02 Long term (current) use of antithrombotics/antiplatelets; Z79.82 Long term (current) use of aspirin; Z86.73 Personal history of transient ischemic attack (TIA), and cerebral infarction without residual deficits; Z85.528 Personal history of other malignant neoplasm of kidney; Z90.5 Acquired absence of kidney
CPT/HCPCS: 36415; 71046; 74018; 74019; 74176; 74250; 80048; 80053; 81001; 82962; 84484; 85025; 85027; 93005; 93010; 96374; 96375; 99285; J1170; J1650; J1815; J2270; J2405; J3490; J7030; S0028

== ENCOUNTER 2019-10-02 12:05 | Emergency (ER) | payer MEDICARE ==
[2019-10-02 12:12] VITALS: BP 123/61
--- NOTE | 2019-10-02 12:40 | ER Document Report ---
ED Medical Screen (RME) - General Chief Complaint: Fall Injury Stated Complaint: FALL/ARM INJURY Time Seen by Provider: 10/02/19 12:28 Mode of Arrival: Wheelchair Information source: Patient Notes: Patient is a 74-year-old male who comes emergency room complaining of having a fall. Patient states he is not sure exactly what happened he just thinks his legs gave out. Patient is recently undergone having rods and screws in L3-L4 area on August 31, 2019. He had this done in [place]. Today he states he is walking on the porch he thinks his legs gave out on him on the way down he hit h is head on the right posterior occipital area on lawnmower blades that were hanging up. And as he fell to the ground his left arm also hit the lawnmower blades. Patient is coming in with a laceration/skin tear to the left forearm. He currently denies any back pain. He is an insulin-dependent diabetic as well and states his sugars have been running well but he has not checked them today. He denies any recent shortness of breath or chest pain. Yet again patient is unable to say what actually happened besides his legs giving out. 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 His last tetanus was approximately 4 months ago. He also thinks he may have overdone his physical therapy yesterday. Patient does take Plavix. He denies any loss of consciousness or any head strike to the floor. Physical examination: Patient is a well-nourished well-developed 74-year-old male in no apparent distress on examination this morning. He however does appear to be uncomfortable and unsure as to what actually caused him to fall. Cardiac shows regular rate and rhythm at approximately 89 bpm no murmur auscultated. Lungs: Bilateral breath sounds decreased throughout no rhonchi rales or wheeze are heard on auscultation. Abdomen: Bowel sounds present all 4 quads nontender to palpate. Neuro exam: Patient is awake alert and oriented present. Neuro exam done in a sitting position in the chair shows no abnormalities. Lower extremities: Patient displays good sensation from the inner ankles to the groin as he does from the outer ankles to the hips. No sign of saddle paresthesia present. I have greeted and performed a rapid initial assessment of this patient. A comprehensive ED assessment and evaluation of the patient, analysis of test results and completion of the medical decision making process will be conducted by additional ED providers. Dictation of this chart was performed using voice recognition software; therefore, there may be some unintended grammatical errors. TRAVEL OUTSIDE OF THE [place] IN LAST 30 DAYS: No - Related Data Allergies/Adverse Reactions: No Known Allergies Allergy (Unverified 01/02/18 15:01) Past Medical History - Social History Frequency of alcohol use: None Drug Abuse: None - Past Medical History Cardiac Medical History: Reports: Hx Coronary Artery Disease, Hx Hypercholesterolemia, Hx Hypertension Endocrine Medical History: Reports: Hx Diabetes Mellitus Type 2 Renal/ Medical History: Denies: Hx Peritoneal Dialysis Malignancy Medical History: Reports Hx Renal (Kidney) Cancer GI Medical History: Reports: Hx Hiatal Hernia Psychiatric Medical History: Reports: Hx Depression Past Surgical History: Reports: Hx Cardiac Catheterization - stents x 6, Hx Coronary Stent - X6, Other - Nephrectomy, TURP, vasectomy Physical Exam - Vital signs Vitals: Temp Pulse Resp BP Pulse Ox 98.4 F 89 18 123/61 95 10/02/19 12:11 10/02/19 12:11 10/02/19 12:11 10/02/19 12:11 10/02/19 12:11 Course - Vital Signs Vital signs: Temp Pulse Resp BP Pulse Ox 98.4 F 89 18 123/61 95 10/02/19 12:11 10/02/19 12:11 10/02/19 12:11 10/02/19 12:11 10/02/19 12:11
[2019-10-02 13:29] LABS: ABSOLUTE BASOPHILS # (AUTO) 0.1 10^3/uL (0.0-0.2); ABSOLUTE EOSINOPHILS # (AUTO) 0.6 10^3/uL (0.0-0.6); ABSOLUTE LYMPHOCYTES (AUTO) 1.3 10^3/uL (0.5-4.7); ABSOLUTE MONOCYTES (AUTO) 0.8 10^3/uL (0.1-1.4); ABSOLUTE NEUT (AUTO) 5.8 10^3/uL (1.7-8.2); BASOPHILS % (AUTO) 1.1 % (0-2); EOSINOPHILS % (AUTO) 7.3 % (0-6); HEMATOCRIT 36.5 % (37.9-51.0); HEMOGLOBIN 12.6 g/dL (13.5-17.0); LYMPHOCYTES % (AUTO) 15.3 % (13-45); MEAN CORPUSCULAR HEMOGLOBIN 30.2 pg (27.0-33.4); MEAN CORPUSCULAR HGB CONC 34.6 g/dL (32.0-36.0); MEAN CORPUSCULAR VOLUME 87 fl (80-97); MONOCYTES % (AUTO) 9.8 % (3-13); PLATELET COUNT 250 10^3/uL (150-450); RED BLOOD COUNT 4.18 10^6/uL (4.35-5.55); RED CELL DISTRIBUTION WIDTH 14.2 % (11.5-14.0); SEGMENTED NEUTROPHILS % (AUTO) 66.5 % (42-78); TOTAL CELLS COUNTED % (AUTO) 100 %; WHITE BLOOD COUNT 8.7 10^3/uL (4.0-10.5)
--- NOTE | 2019-10-02 13:45 | ER Document Report ---
ED Fall - General Chief Complaint: Fall Injury Stated Complaint: FALL/ARM INJURY Time Seen by Provider: 10/02/19 12:28 Mode of Arrival: Wheelchair Information source: Patient Notes: CHIEF COMPLAINT: Skin tear left arm from fall HPI: 74-year-old male who is on Plavix presenting for evaluation of a skin tear to the dorsal left forearm. Patient states that he tripped going down his porch steps, states there was a lawnmower blade hanging near there and he cut his left forearm on it. States 1 of the blades swung around and struck him in the posterior right scalp. No laceration to the scalp. States his tetanus is up-to-date in the last 5 years. States he did fall to the ground but denies hip or pelvis injury. Denies extremity injury other than the skin tear. Denies headache neck pain back pain chest pain abdominal pain. He denies other complaints at this time ROS: See HPI - all other systems were reviewed and are otherwise negative Constitutional: no fever Eyes: no drainage, no blurred vision ENT: no runny nose, no sore throat Cardiovascular: no chest pain Resp: no SOB, no cough GI: no vomiting, no diarrhea, no abdominal pain : no dysuria Integumentary: Positive skin tear Allergy: no hives Musculoskeletal: + extremity pain or swelling Neurological: no numbness/tingling, no weakness MEDICATIONS: I agree with the patient medications as charted by the RN. ALLERGIES: I agree with the allergies as charted by the RN. PAST MEDICAL HISTORY/PAST SURGICAL HISTORY: Reviewed and agree as charted by RN. SOCIAL HISTORY: Reviewed and agree as charted by RN. FAMILY HISTORY: No significant familial comorbid conditions directly related to patient complaint EXAM: Reviewed vital signs as charted by RN. CONSTITUTIONAL: Alert and oriented and responds appropriately to questions. Well-appearing; well-nourished HEAD: Normocephalic; atraumatic EYES: PERRL; Conjunctivae clear, sclerae non-icteric ENT: normal nose; no rhinorrhea; moist mucous membranes; pharynx without lesions noted, no uvula edema or deviation, no tonsillar hypertrophy, phonation normal NECK: Supple without meningismus; non-tender; no cervical lymphadenopathy, no masses CARD: RRR; no murmurs, no clicks, no rubs, no gallops; symmetric distal pulses RESP: Normal chest excursion without splinting or tachypnea; breath sounds clear and equal bilaterally; no wheezes, no rhonchi, no rales, pulse oximetry 100% on room air not hypoxic ABD/GI: Normal bowel sounds; non-distended; soft, non-tender, no rebound, no guarding; no palpable organomegaly or masses. BACK: The back appears normal and is non-tender to palpation, there is no CVA tenderness EXT: Normal ROM in all joints; non-tender to palpation; no cyanosis, no effusions, no edema SKIN: Normal color for age and race; warm; dry; good turgor; there are 2 separate skin tears noted on the dorsal left forearm. Slight superficial skin is noted near each of the wounds which will be debrided. There is no wound that will require other repair at this time. NEURO: Moves all extremities equally; Motor and sensory function intact PSYCH: The patient's mood and manner are appropriate. Grooming and personal hygiene are appropriate. MDM: 74-year-old male mechanical fall on Plavix with a skin tear x2 to the left dorsal forearm. Neither of these wounds will require suture repair. We will have nursing perform minimal debridement and dressed the wounds. He is up-to-date on his tetanus vaccination. There is no visible head wound or injury. He denies headache or other complaints at this time. Screening lab work was placed via triage process. Patient has no chest pain no shortness of breath that would suggest ACS this was a mechanical fall. I have canceled the troponin and urinalysis. He has no abdominal or flank pain suggesting a retroperitoneal hematoma or other intra-abdominal injury at this time. I will give patient strict return precautions. TRAVEL OUTSIDE OF THE [place] IN LAST 30 DAYS: No - Related data Allergies/Adverse Reactions: No Known Allergies Allergy (Unverified 01/02/18 15:01) Past Medical History - General Information source: Patient - Social History Smoking Status: Unknown if Ever Smoked Frequency of alcohol use: None Drug Abuse: None Family History: CAD, DM - Past Medical History Cardiac Medical History: Reports: Hx Coronary Artery Disease, Hx Hypercholesterolemia, Hx Hypertension Endocrine Medical History: Reports: Hx Diabetes Mellitus Type 2 Renal/ Medical History: Denies: Hx Peritoneal Dialysis Malignancy Medical History: Reports Hx Renal (Kidney) Cancer GI Medical History: Reports: Hx Hiatal Hernia Psychiatric Medical History: Reports: Hx Depression Past Surgical History: Reports: Hx Cardiac Catheterization - stents x 6, Hx Coronary Stent - X6, Other - Nephrectomy, TURP, vasectomy Physical Exam - Vital signs Vitals: Temp Pulse Resp BP Pulse Ox 98.4 F 89 18 123/61 95 10/02/19 12:11 10/02/19 12:11 10/02/19 12:11 10/02/19 12:11 10/02/19 12:11 Course - Vital Signs Vital signs: Temp Pulse Resp BP Pulse Ox 98.4 F 89 18 123/61 95 10/02/19 12:11 10/02/19 12:11 10/02/19 12:11 10/02/19 12:11 10/02/19 12:11 - Laboratory Result Diagrams: 10/02/19 12:52 10/02/19 12:52 Laboratory results interpreted by me: 10/02/19 12:52 RBC 4.18 L Hgb 12.6 L Hct 36.5 L RDW 14.2 H Eos % (Auto) 7.3 H Discharge - Discharge Clinical Impression: Fall down stairs Qualifiers: Encounter type: initial encounter Qualified Code(s): W10.8XXA - Fall (on) (from) other stairs and steps, initial encounter Skin tear of forearm without complication Qualifiers: Encounter type: initial encounter Laterality: left Qualified Code(s): S51.812A - Laceration without foreign body of left forearm, initial encounter Condition: Stable Disposition: HOME, SELF-CARE Instructions: Skin Tear ([facility]) Additional Instructions: Gently clean the wound area daily with soap and water apply a small amount of antibiotic ointment and a dressing until healed. Return to the emergency depart ment for any onset of abdominal pain chest pain worsening headache or neck pain
[2019-10-02 13:47] LABS: ALBUMIN 4.1 g/dL (3.5-5.0); ALKALINE PHOSPHATASE 130 U/L (38-126); ANION GAP 6 (5-19); ASPARTATE AMINO TRANSFERASE 18 U/L (17-59); BILIRUBIN,TOTAL 0.3 mg/dL (0.2-1.3); BLOOD UREA NITROGEN 23 mg/dL (7-20); CALCIUM 8.7 mg/dL (8.4-10.2); CARBON DIOXIDE 24 mmol/L (22-30); CHLORIDE 104 mmol/L (98-107); GLUCOSE 260 mg/dL (75-110); POTASSIUM 4.5 mmol/L (3.6-5.0)
--- NOTE | 2019-10-02 23:06 | EKG REPORT ---
SEVERITY:- BORDERLINE ECG - SINUS RHYTHM BORDERLINE LEFT AXIS DEVIATION BORDERLINE T ABNORMALITIES, INFERIOR LEADS : Confirmed by: Dionna Paulino MD 02-Oct-2019 23:05:51
== END 2019-10-02 14:25 | disposition home or self-care (01) ==
LOC: ER 12:05
DX: S51.812A Laceration without foreign body of left forearm, initial encounter (principal); W10.8XXA Fall (on) (from) other stairs and steps, initial encounter; I25.10 Atherosclerotic heart disease of native coronary artery without angina pectoris; E78.00 Pure hypercholesterolemia, unspecified; I10 Essential (primary) hypertension; E11.9 Type 2 diabetes mellitus without complications; Z79.01 Long term (current) use of anticoagulants
CPT/HCPCS: 36415; 80053; 84484; 85025; 93005; 93010; 99284

== ENCOUNTER 2019-10-03 19:22 | Emergency (ER) | payer MEDICARE ==
[2019-10-03] MEDS ORDERED: CEPHALEXIN 500 MG CAPSULE PO ONE (21:21)
--- NOTE | 2019-10-03 21:26 | ER Document Report ---
HPI - HPI Time Seen by Provider: 10/03/19 21:21 Pain Level: 4 Notes: CHIEF COMPLAINT: Recheck of wound on left arm HPI: 74-year-old male presenting for recheck of a wound on the left arm. Patient was seen yesterday after a mechanical fall down some stairs where he had several skin tears on the left forearm. Patient was concerned about the skin tear so decided to come back today for evaluation. No fever ROS: See HPI - all other systems were reviewed and are otherwise negative Constitutional: no fever Integumentary: Positive skin tear Allergy: no hives Musculoskeletal: no extremity pain or swelling Neurological: no numbness/tingling, no weakness MEDICATIONS: I agree with the patient medications as charted by the RN. ALLERGIES: I agree with the allergies as charted by the RN. PAST MEDICAL HISTORY/PAST SURGICAL HISTORY: Reviewed and agree as charted by RN. SOCIAL HISTORY: Reviewed and agree as charted by RN. FAMILY HISTORY: No significant familial comorbid conditions directly related to patient complaint EXAM: Reviewed vital signs as charted by RN. CONSTITUTIONAL: Alert and oriented and responds appropriately to questions. Well-appearing; well-nourished HEAD: Normocephalic; atraumatic EYES: Conjunctivae clear, sclerae non-icteric ENT: normal nose; no rhinorrhea; moist mucous membranes NECK: Supple without meningismus CARD: RRR; no murmurs, no clicks, no rubs, no gallops; symmetric distal pulses RESP: Normal chest excursion without splinting or tachypnea ABD/GI: non-distended BACK: The back appears normal EXT: Normal ROM in all joints; non-tender to palpation; no cyanosis, no effusions, no edema SKIN: Normal color for age and race; warm; dry; good turgor; 2 skin tears are again noted on the dorsal left forearm. Slight skin retraction is noted but no deep wound that would have suggested need for sutures today. No active bleeding NEURO: Moves all extremities equally; Motor and sensory function intact PSYCH: The patient's mood and manner are appropriate. Grooming and personal hygiene are appropriate. MDM: 74-year-old male on Plavix presenting for reevaluation of skin tears on the left forearm. Wounds are still open. We will clean and redress the wounds. Wound care instructions given to the patient. He may clean the area daily with soap and water. There is no deep wound noted that would require suture closure at this time. This will need to heal by granulation and secondary intent. Will place patient on a short course of Keflex to ensure no infection issues - REPRODUCTIVE Reproductive: DENIES: : Past Medical History - Social History Smoking Status: Never Smoker Chew tobacco use (# tins/day): No Frequency of alcohol use: None Drug Abuse: None Family History: CAD, DM Patient has homicidal ideation: No - Past Medical History Cardiac Medical History: Reports: Hx Coronary Artery Disease, Hx Hypercholesterolemia, Hx Hypertension Endocrine Medical History: Reports: Hx Diabetes Mellitus Type 2 Renal/ Medical History: Denies: Hx Peritoneal Dialysis Malignancy Medical History: Reports Hx Renal (Kidney) Cancer GI Medical History: Reports: Hx Hiatal Hernia Psychiatric Medical History: Reports: Hx Depression Past Surgical History: Reports: Hx Cardiac Catheterization - stents x 6, Hx Coronary Stent - X6, Other - Nephrectomy, TURP, vasectomy Vertical Provider Document - INFECTION CONTROL TRAVEL OUTSIDE OF THE [place] IN LAST 30 DAYS: No Course - Vital Signs Vital signs: Temp Pulse Resp BP Pulse Ox 98.8 F 101 H 16 122/77 97 10/03/19 21:14 10/03/19 19:29 10/03/19 19:29 10/03/19 19:29 10/03/19 19:29 Discharge - Discharge Clinical Impression: Visit for wound check Condition: Stable Disposition: HOME, SELF-CARE Additional Instructions: Gently clean the wound area with soap and water. You may trim any skin that dries up with scissors. Apply antibiotic ointment to the wound area twice daily until healed. This wound will need to heal by granulating in. Take the an tibiotics as prescribed. Prescriptions: Cephalexin Monohydrate [Keflex 500 mg Capsule] 500 mg PO Q6H 7 Days #28 capsule Referrals: KATHARINA BELTRAN MD [COMMUNITY BASED STAFF] - Follow up as needed
[2019-10-03 22:50] VITALS: BP 120/70
== END 2019-10-03 21:32 | disposition home or self-care (01) ==
LOC: ER 19:22
DX: S51.812D Laceration without foreign body of left forearm, subsequent encounter (principal); X58.XXXD Exposure to other specified factors, subsequent encounter; Z79.02 Long term (current) use of antithrombotics/antiplatelets
CPT/HCPCS: 99282; A9270